=== PATIENT | male | born 1935 | race Caucasian/White ===

== ENCOUNTER 2023-05-26 20:03 | Inpatient (IN) | payer OTHER ==
[2023-05-26] MEDS ORDERED: D50W 25 GM/50 ML SYRINGE IV PRN (20:48)
[2023-05-26] MEDS ORDERED: GLUCAGON 1 MG/VIAL IM PRN (20:48)
[2023-05-26] MEDS ORDERED: D10W 125 ML IV PRN (20:51)
[2023-05-26] MEDS: APIXABAN 2.5 MG TABLET PO SCH (21:00)
[2023-05-26] MEDS: INSULIN -REGULAR HUMAN 50 UNIT/0.5 ML ML SQ SCH (21:00)
[2023-05-26 21:10] LABS: Absolute Lymphocytes (CBC) 1.1 K/uL (0.7-4.9); Lymphocytes % 13.1 % (15.3-44.8); MCV 96.1 fL (80-100); MPV 8.9 fL (7.6-11.3); RBC Red Blood Cell Count 3.64 M/uL (4.33-5.43)
--- NOTE | 2023-05-26 22:15 | RAD REPORT ---
EXAM DESCRIPTION: RAD - Chest Pa And Lat (2 Views) - 05/26/2023 10:09 pm CLINICAL HISTORY: CHF COMPARISON: No comparisons FINDINGS: Lines: None. Lungs: Left basilar airspace disease. Pleural: Small left pleural effusion . Cardiac: Mild cardiomegaly. Mediastinum: Within normal limits. Bones: No acute fractures. Sternotomy. Other: None IMPRESSION: Small left pleural effusion and probably underlying atelectasis but a consolidative proc ess could appear similar.
[2023-05-26] MEDS: FUROSEMIDE 20 MG/ 2ML VIAL IV SCH (22:30)
[2023-05-26 22:50] LABS: Albumin 3.1 g/dL (3.4-5.0); Bilirubin Total 0.5 mg/dL (0.2-1.0); Potassium 4.5 mEq/L (3.5-5.1); Protein, Total 7.3 g/dL (6.4-8.2)
[2023-05-26 22:56] LABS: Thyroid Stimulating Hormone 6.33 uIU/mL (0.358-3.740)
[2023-05-27] MEDS: PANTOPRAZOLE 40MG TABLET PO SCH (05:47)
[2023-05-27] MEDS: LEVOTHYROXINE SOD 0.05 MG TABLET PO SCH (05:47)
--- NOTE | 2023-05-27 06:29 | HP ---
Date of Admission: 05/26/2023 Chief Complaint: Shortness of breath. History Of Present Illness: This is an 87-year-old very pleasant male patient, who recently moved he re to town from [place], [place] and today was the first office visit appointment for him and after he was evaluated, he was admitted to the hospital. The patient reports that in last 1 month or so, сергей monreal has gained approximately 10 pounds, having significant bilateral leg edema, has shortness of breath with daily activities, which includes walking from room to room and also has some paroxysmal nocturn al dyspnea and orthopnea in the last 3 to 4 weeks. After he was evaluated, decision was made to admi t him to the hospital for further evaluation and management of this problem. Allergies: TO ATORVASTATIN, CAUSING MYALGIA. Review of Systems: Cardiovascular: As mentioned above. Respiratory: As mentioned above. Constitutional: As mentioned above. All other systems reviewed and negative. Medications: Amiodarone 200 mg daily, Eliquis 2.5 mg 2 times a day, aspirin 81 mg daily, tamsulosin 0.4 mg daily, 0.5 mg daily, ferrous sulfate 325 mg daily, furosemide 20 mg daily, glipizid e 10 mg 2 times a day, Januvia 25 mg daily, levothyroxine 25 mcg takes 1-1/2 tablet daily, metoprolol succinate 25 mg daily, losartan 25 mg daily, pantoprazole 40 mg daily, rosuvastatin 10 mg daily at b edtime, vitamin B12 1000 mcg daily. 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 Past Surgical History: Patient had a craniotomy for cerebral hemorrhage, tonsillectomy, coronary art jasmin stent placement in 1998 and 2004, coronary artery bypass surgery in 2002, cardioversion for atria l fibrillation in December 2021, right great toe surgery at age 10 years due to injury. Family History: Father , had diabetes and stroke. Mother , had diabetes. Sister had stroke . Social History: Prior history of smoking, quit long time ago. Use of alcohol negative. Physical Examination: Vital Signs: When he was seen at our office today, blood pressure was 94/54, temperature 97.7, pulse 68, respiratory rate 16, weight 235.4 pounds, height 75 inches. General: Awake, alert, oriented, not in distress. HEENT: Head atraumatic, normocephalic. Conjunctivae nonerythematous. Sclerae white. Mouth, no thr ush or edema noted. Ears/Nose, no mass, lesion, discharge noted. Neck: Supple. No JVD, lymph nodes, bruit, thyromegaly noted. Lungs: Bilateral good equal air entry with diminished air entry in the lower lung bay with presen ce of crackles in bilateral lower 1/3 lung bay. Not using any accessory muscles of respiration. Heart: Normal heart sounds, no murmur or gallop. Abdomen: Soft, bowel sounds normal. No guarding, rigidity, tenderness, mass, hepatosplenomegaly, dis tention, or bruit noted. Extremities: Bilateral leg edema, which is about grade [address] edema [address] the way to groin from h is feet. Skin: No rash, ulcer, cellulitis. Lymphatics: No lymph node enlargement in neck, supraclavicular, infraclavicular region. Neuro: No focal neurological deficit. Chest: Unremarkable. External Genitalia: Deferred. Rectal: Deferred. Laboratory Data: WBC , hemoglobin , platelets . Sodium , po tassium , chloride , bicarb , BUN , creatinine , gl ucose , magnesium , TSH , proBNP , hemoglobin A1c . Chest x-ray , EKG . Impression: 1.Congestive heart failure, acute exacerbation. 2.Diabetes mellitus with chronic kidney disease. 3.Chronic kidney disease, stage 3B. 4.Hypertension. 5.Hyperlipidemia. 6.Coronary artery disease. 7.Paroxysmal atrial fibrillation. 8.Chronic anticoagulation therapy. 9.Hypothyroidism. 10.Gastroesophageal reflux disease. 11.Benign prostatic hypertrophy. 12.Anemia due to chronic kidney disease. Plan: We will go ahead and admit the patient to hospital for further evaluation and management of th is problem. The patient is appropriate for inpatient and is expected to [facility]. We will consult tailor women's garment alteration for congestive heart failure problem and get echo with Doppler tomor row. For his atrial fibrillation, he is on chronic anticoagulation therapy with Eliquis, which will be continued. He is on metoprolol as well as losartan and we will hold these two medications right n ow and this will allow us to give appropriate amount of diuretic therapy with IV Lasix. We will marycruz tor intake, output, daily weight. Fall precaution was ordered and we will consult Physical Therapy. Diabetes will be managed with sliding scale insulin and for hypothyroidism, we will continue his lev othyroxine per order. We will continue his medications for benign prostatic hypertrophy. I have dis cussed with the patient in presence of his daughter regarding his advance directives and the patient clearly has stated that in the event of cardiopulmonary arrest, he does not want any heroic measures like CPR, defibrillation, or ventilator support and we will DNR order in the chart. I will see him t omorrow morning for followup. EARLINE/MODL Voice ID: [id number]
[2023-05-27] MEDS ORDERED: LEVOTHYROXINE SOD 0.025 MG TAB PO SCH (06:30)
[2023-05-27 06:48] VITALS: BMI 29.9
[2023-05-27] MEDS: INSULIN -REGULAR HUMAN 50 UNIT/0.5 ML ML SQ SCH ×4 (07:30→23:29)
[2023-05-27] MEDS: FUROSEMIDE 20 MG/ 2ML VIAL IV SCH ×2 (09:30→20:33)
[2023-05-27] MEDS: APIXABAN 2.5 MG TABLET PO SCH ×2 (09:30→20:33)
[2023-05-27] MEDS: TAMSULOSIN 0.4 MG SR CAP PO SCH (09:30)
[2023-05-27] MEDS: CYANOCOBALAMIN 1,000 MCG TAB PO SCH (09:31)
[2023-05-27] MEDS: ASPIRIN EC 81 MG TAB PO SCH (09:31)
[2023-05-27] MEDS: AMIODARONE HCL 200 MG TAB PO SCH (09:31)
[2023-05-27 20:00] VITALS: O2SAT 94
[2023-05-27] MEDS: ROSUVASTATIN 10 MG TAB PO SCH (20:33)
[2023-05-27] MEDS: DUTASTERIDE 0.5 MG GEL CAP PO SCH (20:33)
[2023-05-28] MEDS: PANTOPRAZOLE 40MG TABLET PO SCH (05:58)
[2023-05-28] MEDS: LEVOTHYROXINE SOD 0.05 MG TABLET PO SCH (05:58)
[2023-05-28] MEDS: INSULIN -REGULAR HUMAN 50 UNIT/0.5 ML ML SQ SCH ×4 (07:30→20:47)
--- NOTE | 2023-05-28 07:56 | PN ---
Date of Progress Note: 05/27/2023 Subjective: The patient was seen this morning for followup. No new complaints or problems reported by the patient. He was lying in bed, not in distress. Vital signs reviewed. Denies any chest pain, nausea, vomiting, or shortness of breath. Objective: HEENT Examination: Unremarkable. Lungs: Clear to auscultation except rales noted in lower lung bay, unchanged from yesterday. Not using any accessory muscles of respiration. Heart: Sounds normal. Abdomen: Soft, bowel sounds normal. No guarding, rigidity, tenderness, distention. Extremities: Leg edema in both lower extremities, unchanged from yesterday. Impression: 1.Congestive heart failure. 2.Chronic kidney disease stage IIIB to stage IV. 3.Hyperlipidemia. 4.Coronary artery disease. 5.Type 2 diabetes mellitus with chronic kidney disease. Plan: We will go ahead and continue current diuretic therapy, continue current diabetes management w ith sliding scale insulin. We will continue his anticoagulation therapy, which is Eliquis. Cardiolo gy consultation is pending and echocardiogram was ordered for today. We will follow up on the result s. Continue IV Lasix. Monitor intake, output, daily weight, and I will see him tomorrow for followu kevin EARLINE/MODL Voice ID: [id number] Report ID: [id number]
--- NOTE | 2023-05-28 08:33 | ECHO ---
HEIGHT: 6 ft 2 in WEIGHT: 230 lb 11.2 oz DATE OF STUDY: 05/27/[address]: Thiago Rice MD 2-DIMENSIONAL: YES M.MODE: YES DOPPLER: YES COLOR FLOW: YES TDS: PORTABLE: YES DEFINITY: BUBBLE STUDY: DIAGNOSIS: CONGESTIVE HEART FAILURE CARDIAC HISTORY: CATHERIZATION: YES SURGERY: CABG PROSTHETIC VALVE: PACEMAKER: MEASUREMENTS (cm) DIASTOLIC (NORMALS) SYSTOLIC (NORMALS) IVSd 1.0 (0.6-1.2) LA Diam (1.9-4.0) LVEF 50-55% LVIDd 3.0 (3.5-5.7) LVIDs 2.6 (2.0-3.5) %FS 15% LVPWd 1.1 (0.6-1.2) Ao Diam 2.7 (2.0-3.7) 2 DIMENSIONAL ASSESSMENT: RIGHT ATRIUM: NORMAL LEFT ATRIUM: NORMAL RIGHT VENTRICLE: NORMAL LEFT VENTRICLE: NORMAL TRICUSPID VALVE: MILD TRICUSPID REGURGITATION MITRAL VALVE: MILD MITRAL REGURGITATION PULMONIC VALVE: NORMAL AORTIC VALVE: NORMAL PERICARDIAL EFFUSION: NONE AORTIC ROOT: NORMAL LEFT VENTRICULAR WALL MOTION: APPEARS NORMAL DOPPLER/COLOR FLOW: SEE BELOW COMMENTS: 1. LIMITED WINDOWS 2. OVERALL LEFT VENTRICULAR EJECTION FRACTION APPEARS NORMAL 50-55% 3. NO TISSUE DOPPLER WAS DONE TO EVALUATE DIASTOLIC FUNCTION 4. MILD MITRAL REGURGITATION 5. MILD TRICUSPID REGURGITATION TECHNOLOGIST: RAVI WEEKS
[2023-05-28] MEDS: glipiZIDE 5 MG TAB PO SCH ×2 (08:52→16:41)
[2023-05-28] MEDS: TAMSULOSIN 0.4 MG SR CAP PO SCH (08:52)
[2023-05-28] MEDS: CYANOCOBALAMIN 1,000 MCG TAB PO SCH (08:52)
[2023-05-28] MEDS: FUROSEMIDE 20 MG/ 2ML VIAL IV SCH ×2 (08:53→20:40)
[2023-05-28] MEDS: AMIODARONE HCL 200 MG TAB PO SCH (08:53)
[2023-05-28] MEDS: APIXABAN 2.5 MG TABLET PO SCH ×2 (08:53→20:40)
[2023-05-28] MEDS: ASPIRIN EC 81 MG TAB PO SCH (08:53)
[2023-05-28 08:59] LABS: Magnesium 2.1 mg/dL (1.6-2.4); Potassium 4.2 mEq/L (3.5-5.1)
--- NOTE | 2023-05-28 18:39 | CON ---
Date of Consultation: 05/27/2023 Reason For Consultation: Heart failure. History Of Present Illness: An 87-year-old male, seen by Dr. Rice in his office as initial evaluatio n. He had significant shortness of breath, orthopnea and lower extremity edema, diagnosed with heart failure, admitted to the hospital. He denies having any chest pain. Generally, he is fatigued. No other complaints. Past Medical History: Hypertension, diabetes, chronic kidney disease, coronary artery disease, dysli pidemia, paroxysmal atrial fibrillation, diastolic heart failure, and anemia. Medications: Refer to reconciliation sheet for detailed list. Allergies: ATORVASTATIN. Family History: No premature coronary artery disease or cancer. Social History: He does not smoke or drink. Does not use any drugs. Review of Systems: All systems reviewed and they were negative except what mentioned in HPI. Physical Examination: Vital Signs: Reviewed. Head and Neck: Pupils are equal, reactive to light. Intact eye movements. No JVD. No cervical lym phadenopathy. Neck is supple. Thyroid is not enlarged. Lungs: Clear to auscultation bilaterally. No rhonchi, wheezing, or crackles. No accessory muscle u se. Heart: Regular rate and rhythm. No extra sounds. Abdomen: Soft, nontender. Bowel sounds positive. No organomegaly. No masses or hernia. No rigidi ty or rebound. Extremities: No edema, clubbing, or cyanosis. Intact pulses. Skin: No rash. Neurologic: Alert, awake, oriented x3. No acute focal deficits appreciated. Investigations: BUN 44, creatinine 2.33. NT-proBNP is 1072. Assessment And Recommendations: 1.Acute on chronic diastolic heart failure exacerbation. Obtain an echo. Agree with IV diuretics, Lasix 20 mg IV q.12 hours. The patient is diuresing very well. Monitor BUN, creatinine, electrolyte s. 2.Atrial fibrillation, seems to be controlled. Continue amiodarone and Eliquis. 3.Dyslipidemia, on Crestor. Continue current management. SR/MODL Voice ID: [id number] Report ID: [id number]
--- NOTE | 2023-05-28 19:06 | PN ---
Date of Progress Note: 05/28/2023 Subjective: Seen by bedside. Significant improvement, edema is improving. No significant shortness of breath today. Review of Systems: Has shortness of breath on exertion with orthopnea and lower extremity edema. No nausea, vomiting, d iarrhea. All other systems reviewed and they were negative. Physical Examination: Vital Signs: Reviewed. Head and Neck: Pupils are equal, reactive to light. Intact eye movements. Positive JVD. No cervic al lymphadenopathy. Neck is supple. Thyroid is not enlarged. Lungs: Clear to auscultation bilaterally. No rhonchi, wheezing, or crackles. No accessory muscle u se. Heart: Regular rate and rhythm. No extra sounds. Abdomen: Soft, nontender. Bowel sounds positive. No organomegaly. No masses or hernia. No rigidi ty or rebound. Extremities: 1 to 2+ edema bilaterally. No clubbing or cyanosis. Intact pulses. Skin: No rash. Neurologic: Alert, awake, oriented x3. No acute focal deficits appreciated. Investigations: Creatinine today is 2.05, BUN is 39. Assessment And Recommendations: 1.Acute on chronic diastolic heart failure. On echo, he has normal ejection fraction. Continue gen tle diuresis. He is responding very well. Monitor BUN, creatinine, and electrolytes. 2.Acute on chronic renal failure. The patient is known to have history of chronic kidney disease. His creatinine improved with diuresis. It is likely due to the elevated central venous pressure and should improve further with diuresis. Monitor creatinine on a daily basis. 3.Dyslipidemia. Continue statin. 4.Hypertension. Blood pressure is controlled. 5.Atrial fibrillation, controlled. Rate is excellent and continue Eliquis. SR/MODL Voice ID: [id number] Report ID: [id number]
--- NOTE | 2023-05-28 19:19 | EKG ---
Test Date: 2023-05-26 Test Time: 23:24:30 Area Forester: BHASKAR MEASUREMENT RESULTS: Intervals: Rate: 60 RI: 284 QRSD: 124 QT: 496 QTc: 496 Norphlet: P: 56 RI: 284 QRS: 98 T: -80 INTERPRETIVE STATEMENTS: Sinus rhythm with 1st degree AV block Rightward axis Nonspecific intraventricular conduction delay T wave abnormality, consider inferolateral ischemia Abnormal ECG No previous ECG available for comparison Electronically Signed On 05-28-23 19:17:52 CDT by Preet Emery
[2023-05-28] MEDS: DUTASTERIDE 0.5 MG GEL CAP PO SCH (20:39)
[2023-05-28] MEDS: ROSUVASTATIN 10 MG TAB PO SCH (20:40)
[2023-05-29 04:49] LABS: Potassium 4.4 mEq/L (3.5-5.1)
[2023-05-29] MEDS: PANTOPRAZOLE 40MG TABLET PO SCH (06:27)
[2023-05-29] MEDS: LEVOTHYROXINE SOD 0.05 MG TABLET PO SCH (06:27)
[2023-05-29] MEDS: INSULIN -REGULAR HUMAN 50 UNIT/0.5 ML ML SQ SCH ×4 (07:30→21:46)
[2023-05-29] MEDS: ASPIRIN EC 81 MG TAB PO SCH (09:00)
--- NOTE | 2023-05-29 09:12 | PN ---
Date of Progress Note: 05/28/2023 Subjective: Patient was seen this morning for followup. No new complaints or problems reported by t he patient. Overall, he feels better and looks better since the time of admission. Daughter was pre sent with him at bedside. Objective: HEENT: Unremarkable. Lungs: Bilateral good equal air entry. Presence of rales noted in lung bases. Overall, that is bett er compared to before. Heart: Heart sounds normal. Abdomen: Soft. Bowel sounds normal. No guarding, rigidity, tenderness, or distention. Extremities: Bilateral leg edema, still grade [address] from thigh to bilateral feet . Overall, that is better than before. Skin: Skin over both lower extremities continues to have very faint pink discoloration, unchanged fr om before. Laboratory Data: Reviewed. Echocardiogram shows normal ejection fraction. Impression: 1.Chronic diastolic heart failure, with acute exacerbation. 2.Coronary artery disease. 3.Hyperlipidemia. Plan: We will go ahead and continue current diuretic therapy. Monitor intake, output, daily weight, electrolytes, renal function. Continue other current management and I will see him tomorrow for followup, possible discharge to go home in next 1 or 2 days depending on his condition. EARLINE/MODL Voice ID: [id number] Report ID: [id number]
[2023-05-29] MEDS: AMIODARONE HCL 200 MG TAB PO SCH (09:28)
[2023-05-29] MEDS: TAMSULOSIN 0.4 MG SR CAP PO SCH (09:28)
[2023-05-29] MEDS: glipiZIDE 5 MG TAB PO SCH ×2 (09:28→16:25)
[2023-05-29] MEDS: APIXABAN 2.5 MG TABLET PO SCH ×2 (09:28→21:45)
[2023-05-29] MEDS: CYANOCOBALAMIN 1,000 MCG TAB PO SCH (09:28)
[2023-05-29] MEDS: FUROSEMIDE 20 MG/ 2ML VIAL IV SCH ×2 (09:29→21:45)
[2023-05-29] MEDS: DUTASTERIDE 0.5 MG GEL CAP PO SCH (21:44)
[2023-05-29] MEDS: ROSUVASTATIN 10 MG TAB PO SCH (21:44)
--- NOTE | 2023-05-30 00:09 | PN ---
Date of Progress Note: 05/29/2023 Subjective: Seen by bedside. Continues to do better and his breathing status is improving. Lower e xtremity edema still there, but with movement. Review of Systems: No chest pain, shortness of breath. No nausea, vomiting, diarrhea. No dysuria, polyuria, or urinary urgency. All other systems reviewed are negative. Physical Examination: Vital Signs: Reviewed. Head and Neck: Pupils are equal, reactive to light. Intact eye movements. No JVD. No cervical lym phadenopathy. Neck is supple. Thyroid is not enlarged. Lungs: Clear to auscultation bilaterally. No rhonchi, wheezing, or crackles. No accessory muscle u se. Heart: Irregular. No extra sounds. Abdomen: Soft, nontender. Bowel sounds positive. No organomegaly. No masses or hernia. No rigidi ty or rebound. Extremities: There is no clubbing, cyanosis. Intact pulses and edema is present. Neurologic: Alert, awake, oriented x3. No acute focal deficits appreciated. Lymph nodes: No cervical or axillary lymphadenopathy. Investigations: Labs were reviewed. Assessment/recommendation: 1.Acute on chronic diastolic heart failure exacerbation, on diuretics, and he probably will benefit from 1 more day of IV diuresis and then switch to oral. 2.Atrial fibrillation. Controlled condition. Continue amiodarone and Eliquis. 3.Dyslipidemia. Continue Crestor. SR/MODL Voice ID: [id number] Report ID: [id number]
[2023-05-30] MEDS: LEVOTHYROXINE SOD 0.05 MG TABLET PO SCH (06:34)
[2023-05-30] MEDS: PANTOPRAZOLE 40MG TABLET PO SCH (06:34)
[2023-05-30] MEDS: INSULIN -REGULAR HUMAN 50 UNIT/0.5 ML ML SQ SCH ×2 (07:30→11:30)
[2023-05-30] MEDS: glipiZIDE 5 MG TAB PO SCH (09:01)
[2023-05-30] MEDS: ASPIRIN EC 81 MG TAB PO SCH (09:01)
[2023-05-30] MEDS: AMIODARONE HCL 200 MG TAB PO SCH (09:01)
[2023-05-30] MEDS: CYANOCOBALAMIN 1,000 MCG TAB PO SCH (09:01)
[2023-05-30] MEDS: TAMSULOSIN 0.4 MG SR CAP PO SCH (09:01)
[2023-05-30] MEDS: APIXABAN 2.5 MG TABLET PO SCH (09:02)
[2023-05-30] MEDS: FUROSEMIDE 20 MG/ 2ML VIAL IV SCH (09:02)
[2023-05-30 09:04] VITALS: BP 124/64
[2023-05-30 09:06] VITALS: TEMP 97.6
[2023-05-30] MEDS ORDERED: METOLAZONE 2.5 MG TABLET PO ONE (11:00)
--- NOTE | 2023-05-30 16:06 | PN ---
Date of Progress Note: 05/30/2023 Subjective: Seen by bedside, breathing much better. No shortness of breath. Still has some lower e xtremity edema, but no difficulty breathing or orthopnea. Review of Systems: No chest pain, shortness of breath, orthopnea, cough. No nausea, vomiting, diarrhea. No abdominal p ain. All other systems reviewed are negative. Physical Examination: Vital Signs: Reviewed. Head and Neck: Pupils are equal, reactive to light. Intact eye movements. No JVD. No cervical lym phadenopathy. Neck is supple. Thyroid is not enlarged. Lungs: Clear to auscultation bilaterally. No rhonchi, wheezing, or crackles. No accessory muscle u se. Heart: Regular rate and rhythm. No extra sounds. Abdomen: Soft, nontender. Bowel sounds positive. No organomegaly. No masses or hernia. No rigidi ty or rebound. Extremities: No edema, clubbing, cyanosis. Intact pulses. Skin: No rash. Neurologic: Alert, awake, oriented x3. No acute focal deficits appreciated. Investigations: Labs reviewed. Assessment/recommendations: 1.Acute on chronic diastolic heart failure exacerbation. Appears to be doing much better. Still pina s some lower extremity edema, but BUN and creatinine started to go up. I will switch him to oral Las ix 40 mg daily and follow up as an outpatient. From my standpoint, he can be released. 2.Atrial fibrillation, controlled. Continue amiodarone and Eliquis. 3.Dyslipidemia. Continue statin. Cardiology will sign off and the patient can be seen on an outpat ient basis. SR/MODL Voice ID: [id number] Report ID: [id number]
--- NOTE | 2023-05-31 16:39 | PN ---
Date of Progress Note: 05/29/2023 Subjective: The patient was seen for followup in the morning. He was lying in bed, not in any distr ess. No paroxysmal nocturnal dyspnea or orthopnea and overall his leg swelling is better. Daily jag ght and vital signs records reviewed. Objective: HEENT: Unremarkable. Lungs: Bilateral good equal air entry. Clear to auscultation. No wheezing. No rales. Heart: Sounds normal. Abdomen: Soft. Bowel sounds normal. No guarding, rigidity, tenderness, distention. Extremities: Bilateral grade 2 pedal edema, overall better than before. Laboratory Data: Labs reviewed. Impression: 1.Chronic diastolic heart failure, with acute exacerbation. 2.Paroxysmal atrial fibrillation. 3.Hypertension. 4.Hyperlipidemia. 5.Chronic kidney disease stage 3B. 6.Chronic anticoagulation therapy. Plan: We will go ahead and continue current diuretic therapy. Continue current anticoagulation ther apy. Monitor intake, output, daily weight and we will continue IV Lasix as per current order. I kel l see him tomorrow for followup and possible discharge to go home tomorrow. Details were discussed w ith the patient. EARLINE/MODL Voice ID: [id number] Report ID: [id number]
--- NOTE | 2023-06-01 18:51 | DS ---
Date of Discharge: 05/30/2023 Disposition: Discharged to go home. Physical Examination: HEENT: Unremarkable. Lungs: Clear to auscultation. Heart: Sounds normal. Abdomen: Soft. Bowel sounds normal. No guarding, rigidity, tenderness, distention. Extremity: Bilateral grade 1 pedal edema. Discharge Medications And Instructions: Continue all prior home medication except following changes; 1.Stop Januvia, metoprolol, losartan, and levothyroxine 25 mcg. 2.Change glipizide 10 mg, take half a tablet 2 times a day. 3.Change furosemide 40 mg, take 1 tablet by mouth 2 times a day. 4.Start Farxiga 5 mg, take 1 tablet by mouth daily with breakfast. 5.Start levothyroxine 50 mcg, take 1 tablet by mouth daily. 6.Follow up at my office next week on Friday or . 7.Follow up with Dr. Emery, door trimmer in 3-4 weeks. Laboratory Data: Upon admission; white count 8.3, hemoglobin 11.3, platelets 162. Last chemistries; sodium 139, potassium 4.4, chloride 103, bicarb 34, BUN 36, creatinine 2.11, estimated GFR 30. On 0 05/28; estimated GFR was 31 with creatinine 2.05. Upon admission; creatinine 2.33, estimated GFR 26. Liver function tests unremarkable, proBNP 1072 upon admission, and TSH 6.3 upon admission. Hemoglob in A1c was 7.6 upon admission. Echocardiogram had shown normal ejection fraction of 50% to 55%. Hospital Course: An 87-year-old very pleasant male patient, who was admitted to the hospital with ac mena exacerbation of chronic diastolic heart failure. Please see dictated H and P for more informatio n. After the patient was evaluated at office for initial office visit, decision was made to admit sabine barcenas to the hospital and once he was admitted to the hospital, we started him on IV Lasix. He responded very well to Lasix 20 mg IV q.12 hours and we monitored intake, output, daily weight, electrolytes, renal function. We also obtained Cardiology consultation from Dr. Emery. The patient overall start ed feeling a lot better with adequate treatment for congestive heart failure and we were able to disc harge him to go home in stable condition today. He has lost about 10-12 pounds weight during this ho spitalization. Today 2.5 mg of metolazone 1 time dose was given to him. We will follow up on outpat ient basis with him. EARLINE/MODL Voice ID: [id number] Report ID: [id number]
== END 2023-05-30 13:49 | disposition home or self-care (01) | DRG 291 ==
LOC: 2ND 20:03
PROVIDERS: ADMIT Internal Medicine; ATTEND Internal Medicine
DX: I13.0 Hypertensive heart and chronic kidney disease with heart failure and stage 1 through stage 4 chronic kidney disease, or unspecified chronic kidney disease (principal); I50.33 Acute on chronic diastolic (congestive) heart failure; N17.9 Acute kidney failure, unspecified; N18.4 Chronic kidney disease, stage 4 (severe); E11.22 Type 2 diabetes mellitus with diabetic chronic kidney disease; D63.1 Anemia in chronic kidney disease; E78.5 Hyperlipidemia, unspecified; I48.0 Paroxysmal atrial fibrillation; N40.0 Benign prostatic hyperplasia without lower urinary tract symptoms; M19.09 Primary osteoarthritis, other specified site; K21.9 Gastro-esophageal reflux disease without esophagitis; E03.9 Hypothyroidism, unspecified; I25.10 Atherosclerotic heart disease of native coronary artery without angina pectoris; Z95.5 Presence of coronary angioplasty implant and graft; Z95.1 Presence of aortocoronary bypass graft; Z88.8 Allergy status to other drugs, medicaments and biological substances; Z79.01 Long term (current) use of anticoagulants; Z79.82 Long term (current) use of aspirin; Z79.84 Long term (current) use of oral hypoglycemic drugs; Z79.899 Other long term (current) drug therapy; Z79.890 Hormone replacement therapy; Z87.891 Personal history of nicotine dependence
CPT/HCPCS: 36415; 71046; 80048; 80053; 82947; 83036; 83735; 83880; 84439; 84443; 85025; 93005; 93306; 97110; 97116; J1815; J1940

== ENCOUNTER 2024-05-30 07:14 | Inpatient (IN) | payer OTHER ==
[2024-05-30 08:02] LABS: Absolute Basophils 0.1 K/uL (0-0.5); Absolute Eosinophils 0.1 K/uL (0-0.5); Absolute Lymphocytes (CBC) 1.1 K/uL (0.7-4.9); Absolute Monocytes 0.7 K/uL (0.1-1.3); Absolute Neutrophil 9.1 K/uL (1.8-8.0); Basophils % 0.6 % (0-1.3); Eosinophils % 0.7 % (0-4.4); Hematocrit 41.1 % (39.6-49.0); Hemoglobin 13.4 g/dL (13.6-17.9); Lymphocytes % 10.2 % (15.3-44.8); MCH 31.2 pg (27.0-35.0); MCHC 32.7 g/dL (32.0-36.0); MCV 95.6 fL (80-100); MPV 8.7 fL (7.6-11.3); Monocytes % 6.4 % (3.3-12.3); Neutrophils % 82.1 % (41.7-73.7); Platelets 185 thou/uL (152-406); Red Cell Distribution Width 13.4 % (12.1-15.2)
[2024-05-30 08:12] LABS: Anion Gap 5.6 mEq/L (5.0-15.0); Potassium 3.6 mEq/L (3.5-5.1)
--- NOTE | 2024-05-30 08:28 | RAD REPORT ---
EXAM DESCRIPTION: RAD - Pelvis - 05/30/2024 8:11 am CLINICAL HISTORY: fall COMPARISON: No comparisons TECHNIQUE: Single AP view of the pelvis. FINDINGS: The visualized pelvic ring is intact. No suspicious osseous lesions. No significant degene rative changes or erosions of the hip joints. Other pelvic joints are unremarkable. Visualized aspect s of the abdomen and soft tissues are unremarkable. IMPRESSION: No acute osseous abnormality of the bony pelvis.
--- NOTE | 2024-05-30 08:42 | RAD REPORT ---
EXAM DESCRIPTION: RAD - Knee Right 3 View - 05/30/2024 8:11 am CLINICAL HISTORY: fall COMPARISON: No comparisons TECHNIQUE: Right knee, 3 views. FINDINGS: Comminuted, mildly displaced, fracture involving the proximal tibial metadiaphysis. Mildly displaced fractures of the proximal fibular diaphysis as well. Moderate degenerative changes. No Dis location or periosteal reaction.Moderate joint effusion. Anterior soft tissue swelling at and above t he level of the knee, as well as the anterior proximal lower leg. IMPRESSION: Proximal tibia and fibula fractures as above. Anterior swelling and moderate joint effus ion.
--- NOTE | 2024-05-30 08:45 | RAD REPORT ---
EXAM DESCRIPTION: [facility] Single View05/30/2024 8:11 am CLINICAL HISTORY: fall COMPARISON: Chest Pa And Lat (2 Views) dated 05/26/2023 TECHNIQUE: Portable AP view of the chest. FINDINGS: Stable left basilar airspace opacification with probable pleural thickening. No pneumotho rax or effusion. The cardiomediastinal contours are unchanged, with sequelae of median sternotomy aga in seen. . IMPRESSION: Stable left basilar airspace opacification, may reflect unresolved pneumonia or atelecta sis.
--- NOTE | 2024-05-30 08:59 | EDPHYS ---
Physician Documentation [facility] Name: Krishna Spencer Age: 88 yrs Sex: Male : 1935 Arrival Date: 05/30/2024 Time: 07:14 Bed 6 Private MD: ED Physician Zhou Lamar HPI: 05/30 07:20 This 88 yrs old Male presents to ER via Unassigned with complaints of Fall ec2 Injury. 07:20 Patient arrives today for evaluation after ground-level fall. Patient reports that he ec2 was walking, generally felt weak and fell onto the ground. Complaining of right knee pain. Patient reports no loss of consciousness, is on blood thinners. Patient reports no chest pain or difficulty breathing, no abdominal pain, no nausea or vomiting. EMS reports that they noted him to be borderline hypotensive and initiated crystalloid. . Historical: - Allergies: 07:23 Lipitor; ko1 - Home Meds: 07:31 Vitamin B-12 1,000 mcg Oral tablet 1 tab daily [Active]; Protonix 40 mg Oral tablet, ko1 delayed release (enteric coated) 1 tab once [Active]; Crestor oral 10mg 1 tab nightly [Active]; ferrous sulfate 325 mg (65 mg iron) Oral tablet 1 tab nightly [Active]; amiodarone 200 mg Oral tablet 1 tab daily for prevention of recurrent atrial fibrillation [Active]; Eliquis 2.5 mg oral tablet 1 tab 2 times per day [Active]; Lasix 40 mg Oral tablet 1 tab daily [Active]; dutasteride 0.5 mg oral capsule 1 cap nightly [Active]; levothyroxine 50 mcg tablet 1 tab daily for hypothyroidism [Active]; Farxiga 10 mg oral tablet 1 tab daily [Active]; midodrine 5 mg oral tablet 1 tab 5am, 10am, 3pm for symptomatic orthostatic hypotension [Active]; Tresiba FlexTouch U-100 100 unit/mL (3 mL) subcutaneous Insulin Pen 34 units daily [Active]; Ozempic 1 mg/dose (4 mg/3 mL) subcutaneous Pen Injector 1 mg every week for type 2 diabetes mellitus [Active]; - Immunization history:: Adult Immunizations up to date. - Infectious Disease History:: Denies. - Social history:: Smoking status: Patient denies any tobacco usage or history of. ROS: 07:20 Constitutional: as per hpi ec2 Exam: 07:20 Constitutional: GEN: No acute distress HEENT: -Head: no deformities -Eyes: EOMI CV: ec2 regular rate LUNGS: no respiratory distress ABD: non-tender SKIN: no wounds appreciated MSK: No C/T/L spine deformities RUE w/o bony deformity LUE w/o bony deformity RLE with TTP to the right tibia, proximal. Intact distal neurovascular status. LLE w/o bony deformity NEURO: moves all extremities equally, GCS 15 (E4, V5, M6) Vital Signs: 07:21 BP 107 / 66; Pulse 68; Resp 16; Temp 97; Pulse Ox 99% ; Weight 90.72 kg; Height 6 ft. 2 ko1 in. ; Pain 5/10; 08:52 BP 103 / 69; Pulse 73; Resp 16; Pulse Ox 99% on R/A; iw 09:39 BP 103 / 60; Pulse 72; Resp 16; Pulse Ox 99% on 2 lpm NC; iw 07:21 Body Mass Index 25.68 (90.72 kg, 187.96 cm) ko1 07:21 Pain Scale: Adult ko1 MDM: 07:18 Patient medically screened. ec2 07:20 Data reviewed: vital signs. ED course: Patient arrives today for evaluation after ec2 ground-level fall. Examination remarkable for well-appearing nontoxic individual is otherwise in no acute distress with TTP to the right knee. Will obtain lab work, radiographs as well as CT scan of the head. Differential includes process such as dehydration, arrhythmia, electrolyte disturbances, bony fracture.. 07:31 ED course: EKG independently reviewed and interpreted by me, shows normal sinus rhythm, ec2 rate 69, no acute ST segment elevations, intervals are nonconcerning, does show first-degree AV block. . 07:47 ED course: Daughter now at bedside, reports that he has a hx of hypotension and is on ec2 midodrine 5mg tid. 08:42 ED course: All shows whatMetabolic profile dysfunction with a creatinine of 1.67 and ec2 GFR of 39. CBC is pertinent for minimal anemia. Pelvis x-ray shows no acute traumatic process. CK within normal ranges. . 08:48 ED course: Knee x-ray independently reviewed and interpreted by me, shows proximal ec2 fibula and tibia fractures. Will place patient in a long-leg splint.. 08:56 ED course: Patient is a significant fall risk given his injury and splint, will admit ec2 for PT/OT. discussed w/ hospitalist, pending admission . 05/30 07:20 Order name: Basic Metabolic Panel; Complete Time: 08:41 ec2 05/30 07:20 Order name: CBC with Diff; Complete Time: 08:41 ec2 05/30 07:20 Order name: CK; Complete Time: 08:41 ec2 05/30 09:06 Order name: Urinalysis w/ reflexes EDMO 05/30 07:20 Order name: XRAY Chest (1 view); Complete Time: 08:49 ec2 05/30 07:20 Order name: Knee Right 3 View XRAY; Complete Time: 08:49 ec2 05/30 07:20 Order name: Pelvis XRAY; Complete Time: 08:41 ec2 05/30 07:20 Order name: CT Head Brain wo Cont; Complete Time: 09:40 ec2 05/30 09:06 Order name: CONS Physician Consult [facility] 05/30 09:06 Order name: Physical Therapy Consult [facility] 05/30 07:20 Order name: Cardiac monitoring; Complete Time: 07:31 ec2 05/30 07:20 Order name: EKG - Nurse/Tech; Complete Time: 07:31 ec2 05/30 07:20 Order name: IV Saline Lock; Complete Time: 07:31 ec2 05/30 07:20 Order name: Labs collected and sent; Complete Time: 07:31 ec2 05/30 07:20 Order name: O2 Per Protocol; Complete Time: 07:31 ec2 05/30 07:20 Order name: O2 Sat Monitoring; Complete Time: 07:31 ec2 05/30 07:40 Order name: Labs - recollect needed: recollect all the blood/ hemolyzed per Shira; eb Complete Time: 07:47 05/30 08:49 Order name: Posterior Leg Splint; Complete Time: 09:22 ec2 Administered Medications: 07:31 Drug: NS 0.9% IV 1000 ml IV at 1 bolus Per protocol; 1000 mL bolus Route: IV; Rate: 1 ko1 bolus; Site: right antecubital; 09:40 Follow up: IV Status: Completed infusion iw 09:12 Drug: fentaNYL (PF) IVP 25 mcg IVP once Route: IVP; Site: right antecubital; iw Disposition Summary: 05/30/24 08:58 Hospitalization Ordered Notes: Hospitalization Status: Inpatient Admission ec2 Provider: Fernanda Rice ec2 Location: Telemetry/MedSurg (Inpatient) ec2 Condition: Stable ec2 Problem: new ec2 Symptoms: have improved ec2 Bed/Room Type: Standard ec2 Room Assignment: 201(05/30/24 09:10) eb Diagnosis - Weakness ec2 - Non-displaced Tibial Plateau Fracture ec2 Forms: - Medication Reconciliation Form ec2 - SBAR form ec2 - Leadership Thank You Letter ec2 Signatures: Dispatcher [employer] EDMS Albina Vivas RN RN iw Botello, Elizabeth eb Oliver, Kathy, RN RN ko1 Zhou Lamar MD MD ec2 Corrections: (The following items were deleted from the chart) 07:20 07:20 Chest Single View+RAD.RAD.BRZ ordered. EDMS EDMS 07:20 07:20 Knee Right 3 View+RAD.RAD.BRZ ordered. EDMS EDMS 07:20 07:20 Pelvis+RAD.RAD.BRZ ordered. EDMS EDMS 07:20 07:20 Head Brain Wo Cont+CT.RAD.BRZ ordered. EDMS EDMS 09:10 08:58 ec2 eb
--- NOTE | 2024-05-30 08:59 | ER ---
Nurse's Notes [facility] Name: Krishna Spencer Age: 88 yrs Sex: Male : 1935 Arrival Date: 05/30/2024 Time: 07:14 Bed 6 Private MD: Diagnosis: Weakness;Non-displaced Tibial Plateau Fracture Presentation: 05/30 07:21 Chief complaint: EMS states: patient fell this morning around 4am, did not hit head or ko1 loose consciousness. Complains of pain to right knee. He is on Eliquis. Coronavirus screen: At this time, the client does not indicate any symptoms associated with coronavirus-19. Ebola Screen: No symptoms or risks identified at this time. Initial Sepsis Screen: Does the patient meet any 2 criteria? No. Patient's initial sepsis screen is negative. Does the patient have a suspected source of infection? No. Patient's initial sepsis screen is negative. Risk Assessment: Do you want to hurt yourself or someone else? Patient reports no desire to harm self or others. Onset of symptoms was May 30, 2024. Care prior to arrival: IV initiated. 20 GA, in the right antecubital area. Mechanism of Injury: Fall from standing position. Transition of care: patient was received from another setting of care (long-term care facility), [facility]. 07:21 Method Of Arrival: EMS: [facility] ko1 07:21 Acuity: MARIA ESTHER 3 ko1 07:30 Care prior to arrival: Medication(s) given: Normal saline infusion. ko1 Triage Assessment: 07:23 General: Appears in no apparent distress. comfortable, Behavior is calm, cooperative, ko1 appropriate for age. Pain: Complains of pain in right knee. EENT: No deficits noted. Neuro: No deficits noted. Cardiovascular: No deficits noted. Respiratory: No deficits noted. GI: No deficits noted. : No deficits noted. Derm: No deficits noted. Musculoskeletal: Reports pain in right knee. Injury Description: Abrasion sustained to right knee. Historical: - Allergies: 07:23 Lipitor; ko1 - Home Meds: 07:31 Vitamin B-12 1,000 mcg Oral tablet 1 tab daily [Active]; Protonix 40 mg Oral tablet, ko1 delayed release (enteric coated) 1 tab once [Active]; Crestor oral 10mg 1 tab nightly [Active]; ferrous sulfate 325 mg (65 mg iron) Oral tablet 1 tab nightly [Active]; amiodarone 200 mg Oral tablet 1 tab daily for prevention of recurrent atrial fibrillation [Active]; Eliquis 2.5 mg oral tablet 1 tab 2 times per day [Active]; Lasix 40 mg Oral tablet 1 tab daily [Active]; dutasteride 0.5 mg oral capsule 1 cap nightly [Active]; levothyroxine 50 mcg tablet 1 tab daily for hypothyroidism [Active]; Farxiga 10 mg oral tablet 1 tab daily [Active]; midodrine 5 mg oral tablet 1 tab 5am, 10am, 3pm for symptomatic orthostatic hypotension [Active]; Tresiba FlexTouch U-100 100 unit/mL (3 mL) subcutaneous Insulin Pen 34 units daily [Active]; Ozempic 1 mg/dose (4 mg/3 mL) subcutaneous Pen Injector 1 mg every week for type 2 diabetes mellitus [Active]; - Immunization history:: Adult Immunizations up to date. - Infectious Disease History:: Denies. - Social history:: Smoking status: Patient denies any tobacco usage or history of. Screenin:28 [facility] ED Fall Risk Assessment (Adult) History of falling in the last 3 months, ko1 including since admission Yes- single mechanical fall (1 pt) Confusion or Disorientation No (0 pts) Intoxicated or Sedated No (0 pts) Impaired Gait Yes (1 pt) Mobility Assist Device Used Yes (1 pt) Altered Elimination No (0 pt) Score/Fall Risk Level 0 - 2 = Low Risk Oriented to surroundings, Maintained a safe environment, Educated pt \T\ family on fall prevention, incl call for assistance when getting out of bed, Assessed \T\ reinforced patient's understanding of fall precautions, Provided non-skid footwear, Hourly rounding (assess needs \T\ fall precautionary measures) done. Abuse screen: Denies threats or abuse. Denies injuries from another. Nutritional screening: No deficits noted. Tuberculosis screening: No symptoms or risk factors identified. Assessment: 07:28 Reassessment: see triage note. ko1 08:52 Reassessment: Patient appears in no apparent distress at this time. Patient and/or iw family updated on plan of care and expected duration. Pain level reassessed. Dr. Lamar at bedside to update pt and family on POC. Vital Signs: 07:21 BP 107 / 66; Pulse 68; Resp 16; Temp 97; Pulse Ox 99% ; Weight 90.72 kg; Height 6 ft. 2 ko1 in. ; Pain 5/10; 08:52 BP 103 / 69; Pulse 73; Resp 16; Pulse Ox 99% on R/A; iw 09:39 BP 103 / 60; Pulse 72; Resp 16; Pulse Ox 99% on 2 lpm NC; iw 07:21 Body Mass Index 25.68 (90.72 kg, 187.96 cm) ko1 07:21 Pain Scale: Adult ko1 ED Course: 07:17 Patient arrived in ED. eb 07:18 Zhou Lamar MD is Attending Physician. ec2 07:19 Kelsy Hernández, RN is Primary Nurse. ko1 07:23 Triage completed. ko1 07:23 Arm band placed on right wrist. Patient placed in an exam room, on a stretcher, on ko1 cardiac exercise specialist, on pulse oximetry, Patient notified of wait time. 07:28 Patient has correct armband on for positive identification. Allergy band placed. Fall ko1 risk band placed. Bed in low position. Call light in reach. Side rails up X2. Provided Education on: call light, labs, tests. Client placed on continuous cardiac and pulse oximetry monitoring. NIBP monitoring applied. child monitor on. Door closed. Noise minimized. Lights dimmed. Warm blanket given. Pillow given. 07:28 Initial lab(s) drawn, by ED staff, sent to lab. EKG done, by ED staff, reviewed by ko1 Zhou Lamar MD. Maintain EMS IV. Dressing intact. Good blood return noted. Site clean \T\ dry. Gauge \T\ site: 20g right AC. Flushed right antecubital with 5 ml normal saline. 07:31 CK Sent. ko1 07:31 Basic Metabolic Panel Sent. ko1 07:31 CBC with Diff Sent. ko1 07:47 Lab(s) recollected, by me, sent to lab. iw 07:54 CT Head Brain wo Cont In Process Unspecified. EDMS 08:12 XRAY Chest (1 view) In Process Unspecified. EDMS 08:12 Knee Right 3 View XRAY In Process Unspecified. EDMS 08:12 Pelvis XRAY In Process Unspecified. EDMS 08:57 Fernanda Rice MD is Hospitalizing Provider. ec2 09:20 No provider procedures requiring assistance completed. Patient admitted, IV remains in ko1 place. 09:22 Orthoglass splint: Posterior long leg splint applied on right leg. em1 Administered Medications: 07:31 Drug: NS 0.9% IV 1000 ml IV at 1 bolus Per protocol; 1000 mL bolus Route: IV; Rate: 1 ko1 bolus; Site: right antecubital; 09:40 Follow up: IV Status: Completed infusion iw 09:12 Drug: fentaNYL (PF) IVP 25 mcg IVP once Route: IVP; Site: right antecubital; iw Medication: 09:20 VIS not applicable for this client. ko1 Outcome: 08:58 Decision to Hospitalize by Provider. ec2 09:20 Admitted to ER Hold. Please see [facility] for further documentation. ko1 09:20 Condition: stable 09:20 Instructed on the need for admit, 09:50 Patient left the ED. eb Signatures: Dispatcher [employer] Albina Moffett RN RN iw Kirit Vargas em1 Jackelyn Huffman Kathy, RN RN ko1 Zhou Laamr MD MD ec2 Corrections: (The following items were deleted from the chart) 07:27 07:21 Chief complaint: EMS states: patient fell this morning around 4am, did not hit ko1 head or loose consciousness. Complains of pain to right knee. ko1 07:30 07:21 Coronavirus screen: At this time, the client does not indicate any symptoms ko1 associated with coronavirus-19. ko1 08:53 08:52 Pulse 73bpm; Resp 16bpm; Pulse Ox 99% RA; iw iw
[2024-05-30] MEDS ORDERED: ACETAMINOPHEN 325 MG TABLET PO PRN (09:01)
[2024-05-30] MEDS ORDERED: ONDANSETRON 4 MG/2 ML VIAL IV PRN ×2 (09:01→15:57)
[2024-05-30] MEDS ORDERED: FENTANYL CITR 100 MCG/2 ML ONE (09:05)
--- NOTE | 2024-05-30 09:28 | RAD REPORT ---
EXAM DESCRIPTION: CT - Head Brain Wo Cont - 05/30/2024 7:53 am CLINICAL HISTORY: head injury, fall, blood thinners COMPARISON: No comparisons TECHNIQUE: Noncontrast head CT images were obtained without IV contrast. Multiplanar reformats were generated and reviewed. All CT scans are performed using dose optimization technique as appropriate and may include automated exposure control or mA/KV adjustment according to patient size. FINDINGS: No intracranial hemorrhage, mass, or edema. Midline structures are unremarkable. Sequelae of prior right frontoparietal craniotomy. Mild diffuse parenchymal volume loss. No hydrocephalus. Irvin-white matter differentiation is preserved, without evidence of acute infarct. No abnormal extra- axial fluid collections. Mastoid air cells and visualized portions of the paranasal sinuses are clear. No acute bony findings. IMPRESSION: No evidence of an acute intracranial process.
[2024-05-30] MEDS: MIDODRINE HCL 5 MG TABLET PO SCH ×2 (10:59→16:33)
[2024-05-30 11:52] VITALS: BMI 25.7
[2024-05-30] MEDS: PNEUMOCOCCAL VACCINE 0.5 ML IMVAC ONE (13:00)
[2024-05-30] MEDS: MORPHINE 2 MG/ML SYR IV PRN (16:22)
[2024-05-30] MEDS: INSULIN REGULAR (HUMAN) 100 UNIT/ML SQ SCH (16:30)
--- NOTE | 2024-05-30 19:30 | HP ---
Date of Admission: 05/30/2024 Chief Complaint: Fall and leg pain. History Of Present Illness: This is an 88-year-old very pleasant male patient, who has problem with orthostatic hypotension, type 2 diabetes mellitus, hypertension, hyperlipidemia, and other chronic comorbidities, was doing fine in his normal usual state of health until early this morning around 4 o'clock when he woke up from his sleep. He felt like he wanted to go ahead and start making his coffee and go back to bed. As he was in the kitchen trying to prepare his coffee, all of a sudden he felt weak as if he is going to fall down and next second, he was on the ground and immediately started having pain in his right leg and he was subsequently brought into emergency room where further evaluation was done revealing presence of fracture of right proximal tibia and fibula fracture. The patient was evaluated and treated in the emergency room with application of splint to his right lower extremity and I was contacted requesting admission to the hospital and orthopedic consultation was requested from Dr. Cho. I saw him in emergency room. His daughter and son-in-law were present with him at bedside. The patient takes his midodrine 3 times a day, but during middle of the night, he says he wakes up, he has to go to bathroom and sometime he wakes up to go to kitchen to start his coffee and this is done during middle of the night before he takes his first dose of midodrine. He does take his midodrine 3 times a day. Allergies: TO ATORVASTATIN, CAUSING MYALGIA. Review of Systems: Musculoskeletal: As mentioned above. All other systems reviewed and negative. Medications: List reviewed. Past Medical History: Significant for hypothyroidism, type 2 diabetes mellitus with chronic kidney disease, hypertension, coronary artery disease, hyperlipidemia, paroxysmal atrial fibrillation, congestive heart failure, gastroesophageal reflux disease, chronic kidney disease stage 3B, anemia due to chronic kidney disease, osteoarthritis at multiple sites, benign prostatic hypertrophy. Past Surgical History: Patient had a craniotomy for cerebral hemorrhage, tonsillectomy, coronary artery stent placement in 1998 and 2004, coronary arterybypass surgery in 2002, cardioversion for atrial fibrillation in December 2021, right great toe surgery at age 10 years due to injury. Family History: Father , had diabetes and stroke. Mother , had diabetes. Sister had stroke. Social History: Prior history of smoking, quit long time ago. Use of alcohol negativ Physical Examination: Vital Signs: Weight pounds, height 6 feet inches, temperature . General: Awake, alert, oriented, not in distress. HEENT: Head atraumatic, normocephalic. Conjunctivae nonerythematous. Sclerae white. Mouth, no thrush or edema noted. Ears/Nose, no mass, lesion, discharge noted. Neck: Supple. No JVD, lymph nodes, bruit, thyromegaly noted. Lungs: Bilateral good equal air entry. Clear to auscultation. No rhonchi. No rales. Heart: Normal heart sounds, no murmur or gallop. Abdomen: Soft, bowel sounds normal. No guarding, rigidity, tenderness, mass, hepatosplenomegaly, distention, or bruit noted. 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 Remaining toes appear normal on physical exam. Skin: No rash, ulcer, cellulitis. Lymphatics: No lymph node enlargement in neck, supraclavicular, infraclavicular region. Neuro: No focal neurological deficit. Chest: Unremarkable. External Genitalia: Deferred. Rectal: Deferred. Laboratory Data: White count 11.10, hemoglobin 13.4, platelets 185. Sodium 139, potassium 3.6, chloride 103, bicarb 34, BUN 39, creatinine 1.67, glucose 102. Right knee x-ray shows proximal tibia and fibula fracture, mildly displaced. Chest x-ray shows chronic basilar airspace opacification, unchanged from 05/26/2023. CAT scan of the head was negative for any acute intracranial changes and x-ray of the pelvis was negative for any acute changes. Impression: 1. Fracture, right proximal tibia and fibula, with mild displacement. 2. Anemia due to chronic kidney disease. 3. Orthostatic hypotension. 4. Type 2 diabetes mellitus with chronic kidney disease. 5. Chronic kidney disease, stage IIIB. 6. Hypertension. 7. Hyperlipidemia. 8. Coronary artery disease. 9. Paroxysmal atrial fibrillation. 10. Chronic anticoagulation therapy. 11. Hypothyroidism. 12. Gastroesophageal reflux disease. 13. Benign prostatic hypertrophy. Plan: We will go ahead and admit the patient to hospital for further evaluation and management of this problem. The patient is appropriate for inpatient and is expected to spend 2 midnights in hospital. For his fracture of right tibia and fibula, the patient already had emergency management provided by ER physician with pain medication and placement of splint and we will consult Dr. Cho and follow up with him regarding his recommendation regarding further treatment. Pain medications will be given per order. We will also give nausea medication on an as-needed basis. For his chronic diastolic heart failure, we will continue his home medication per order and no need for further intervention. The patient is medically stable from that point of view. For diabetes, we will manage it with sliding scale insulin and his oral diabetic medications per order. For his hypertension, we will monitor blood pressure and consider medication depending on his blood pressure as per order. For his paroxysmal atrial fibrillation, we will continue his chronic anticoagulation therapy and no need for further intervention on it. For hypothyroidism, we will continue his levothyroxine as per order and no need for further intervention. Details and plan of treatment discussed with the patient and I also informed him that he should take his first dose of midodrine about 1 hour before getting out of bed in the morning and then second dose 5 hours later and third dose another 5 hours later. Total time spent today was 85 minutes including review of last hospital admission record from 05/26/2023, review of last office record, communication with the ER physician, performing evaluation and management of today's admission. I will see him tomorrow for followup. EARLINE/KOKO Voice ID: [id number] FLORINDA
[2024-05-30 20:21] LABS: Specific Gravity 1.027 (1.005-1.030); Sqamous Epithelial <5 /HPF (None Seen); Urine Bacteria <20 /HPF (<20); Urine Bilirubin NEGATIVE (Negative); Urine Blood Negative (Negative); Urine Clarity Clear (Clear); Urine Color Light-Yellow (Yellow); Urine Culture Reflex Order NOT NEEDED; Urine Glucose 4+ (Over) (Negative); Urine Ketones NEGATIVE (Negative); Urine Microscopic Reflex YN ORDER UMIC; Urine Mucus Slight /HPF (None Seen); Urine Nitrite NEGATIVE (Negative); Urine Protein 1+ (Negative); Urine RBC <5 /HPF (None Seen); Urine Urobilinogen Normal (Normal); Urine WBC <5 /HPF (<5)
[2024-05-30] MEDS: ROSUVASTATIN 10 MG TAB PO SCH (20:39)
[2024-05-30] MEDS: FERROUS SULFATE 325 MG TAB PO SCH (20:40)
[2024-05-30] MEDS: APIXABAN 2.5 MG TABLET PO SCH (20:40)
[2024-05-30] MEDS: DUTASTERIDE 0.5 MG GEL CAP PO SCH (20:40)
[2024-05-31 07:40] LABS: Absolute Eosinophils 0.1 K/uL (0-0.5); Absolute Lymphocytes (CBC) 1.6 K/uL (0.7-4.9); Absolute Monocytes 0.9 K/uL (0.1-1.3); Absolute Neutrophil 7.1 K/uL (1.8-8.0); Basophils % 0.5 % (0-1.3); Eosinophils % 1.2 % (0-4.4); Hematocrit 37.7 % (39.6-49.0); Hemoglobin 12.3 g/dL (13.6-17.9); MCH 31.5 pg (27.0-35.0); MCHC 32.7 g/dL (32.0-36.0); MCV 96.4 fL (80-100); MPV 9.1 fL (7.6-11.3); Monocytes % 9.6 % (3.3-12.3); Neutrophils % 72.7 % (41.7-73.7); Platelets 148 thou/uL (152-406); RBC Red Blood Cell Count 3.91 M/uL (4.33-5.43); Red Cell Distribution Width 13.8 % (12.1-15.2)
[2024-05-31 08:02] LABS: Albumin 2.9 g/dL (3.4-5.0); Albumin/Globulin Ratio 0.9 (1.1-1.8); Anion Gap 5.1 mEq/L (5.0-15.0); Bilirubin Total 1.4 mg/dL (0.2-1.0); Globulin 3.2 g/dL (2.3-3.5); Magnesium 2.4 mg/dL (1.6-2.4); Potassium 4.1 mEq/L (3.5-5.1); Protein, Total 6.1 g/dL (6.4-8.2); Thyroid Stimulating Hormone 0.802 uIU/mL (0.358-3.740)
[2024-05-31] MEDS: FUROSEMIDE 40 MG TABLET PO SCH (09:00)
[2024-05-31] MEDS: FARXIGA 10 MG PO SCH (09:00)
[2024-05-31] MEDS: AMIODARONE HCL 200 MG TAB PO SCH (09:48)
[2024-05-31] MEDS: INSULIN GLARGINE 100 UNIT/ML SQ SCH (09:48)
[2024-05-31] MEDS: CYANOCOBALAMIN 1,000 MCG TAB PO SCH (09:48)
[2024-05-31] MEDS: PANTOPRAZOLE 40MG TABLET PO SCH (09:59)
[2024-05-31] MEDS: LEVOTHYROXINE SOD 0.05 MG TABLET PO SCH (09:59)
--- NOTE | 2024-05-31 12:31 | EKG ---
Test Date: 2024-05-30 Test Time: 07:24:50 Membership Solicitor: JG MEASUREMENT RESULTS: Intervals: Rate: 69 HI: 274 QRSD: 166 QT: 568 QTc: 608 [place]: P: HI: 274 QRS: 116 T: 0 INTERPRETIVE STATEMENTS: Sinus rhythm with 1st degree AV block Right bundle branch block Abnormal ECG Compared to ECG 05/26/2023 23:24:30 Right bundle-branch block now present Right-axis deviation no longer present Intraventricular conduction delay no longer present T-wave abnormality no longer present Possible ischemia no longer present Electronically Signed On 05-31-24 12:30:00 CDT by Preet Emery
--- NOTE | 2024-05-31 23:13 | CON ---
Preoperative Diagnosis: Right proximal tibia fracture with concomitant fibular fracture. History Of Present Illness: Mr. Spencer lives independently at [place]. He sustained a fall and is a ssisted living. He was evaluated and has nondisplaced proximal tibia fracture and minimally displace d fibular fracture. On radiographs, his bone stock is extremely poor. He remains neurovascularly in tact. He has a long-leg splint at the time of this dictation. Plan: Will be to place him in a knee immobilizer and begin physical therapy protocols. NIDA/KOKO Voice ID: [id number] Report ID: [id number]
[2024-06-01] MEDS: MORPHINE 4 MG/ML SYR IV PRN (21:09)
[2024-06-01 22:18] VITALS: O2SAT 96
--- NOTE | 2024-06-01 22:46 | PN ---
Date of Progress Note: 05/31/2024 Subjective: The patient was seen this morning for followup. He was lying in bed, not in any distres s. No new complaints or problems reported by the patient. Denies any pain, nausea, vomiting. No ch est pain. No shortness of breath. Objective: Vital Signs: Reviewed. HEENT: Unremarkable. Lungs: Clear to auscultation. Heart: Sounds normal. Abdomen: Soft. Bowel sounds normal. No guarding, rigidity, tenderness, distention. Extremities: No leg edema. Pain present over right lower extremity. Laboratory Data: Reviewed. Impression: 1.Fracture, right proximal tibia and fibula. 2.Chronic kidney disease. 3.Diabetes mellitus. 4.Hypertension. 5.Congestive heart failure. Plan: We will go ahead and continue current medication. Orthopedic consultation is appreciated, and we will go ahead and have Physical Therapy work with the patient. Dr. Cho from Orthopedic Surg [facility] has cleared the patient for physical therapy and the patient will not require any surgical interv ention. We will continue current pain medications per order. Continue current medications for his c hronic medical problems as per order, and we will see him tomorrow for followup. EARLINE/MODL Voice ID: [id number] Report ID: [id number]
[2024-06-02 09:08] VITALS: BP 97/51; TEMP 97.1
--- NOTE | 2024-06-03 06:55 | DS ---
Date of Discharge: 06/02/2024 Disposition: Discharged to go to inpatient rehab. Physical Examination: HEENT: Unremarkable. Lungs: Clear to auscultation. Heart: Sounds normal. Abdomen: Soft. Bowel sounds normal. No guarding, rigidity, tenderness, distention. Extremities: No edema on the left leg. Right lower extremity has splint present involving the right lower leg. Discharge Medications And Instructions: See copy of transfer order MAR for details. Final Diagnoses: 1.Fracture, right proximal tibia and fibula, with mild displacement. 2.Anemia due to chronic kidney disease. 3.Orthostatic hypotension. 4.Type 2 diabetes mellitus with chronic kidney disease. Hospital Course: This is an 88-year-old pleasant male patient, who was admitted to the hospital afte r he fell down at home and he was brought into the ER and was diagnosed as having fracture of the rig ht proximal tibia and fibula. Please see dictated H and P for more information. After the patient w as evaluated in the emergency room, he was admitted to the hospital and orthopedic consultation was r equested from Dr. Cho. Conservative management was recommended by him. The patient has a splin t present over right lower extremity which was applied in the emergency room and Dr. Cho recomme nded physical therapy, and pain medication was ordered which has actually helped to control his pain very well. Overall, his other medical problems have remained stable. For his diabetes, we are manag ing his fingerstick blood sugar with sliding scale as well as giving long-acting insulin at a lower d ose. Physical Therapy was consulted. The patient started to participate well with physical therapy and we also requested consultation from inpatient rehab and the patient was evaluated and accepted fo r inpatient rehab. Medically, he was stable for discharge today and I will continue to follow up on the rehab floor. Labs upon admission, . Total time spent today was 35 minutes. EARLINE/MODL Voice ID: [id number] Report ID: [id number]
--- NOTE | 2024-06-04 21:36 | DS ---
Date of Discharge: 06/02/2024 Disposition: The patient was transferred to inpatient rehab on fifth floor. Physical Examination: HEENT: Unremarkable. Lungs: Clear to auscultation. Heart: Sounds normal. Abdomen: Soft. Bowel sounds normal. No guarding, rigidity, tenderness, distention. Extremities: No edema on the left leg. Right leg has splint present. Normal exam of toes. Laboratory Data: On admission on 05/30/2024, white count 11.10, hemoglobin 13.4, platelets of 185. Day after admission on 05/31/2024, white count 9.8, hemoglobin 12.3, platelets 148. For chemistry up on admission, sodium 139, potassium 3.6, chloride 103, bicarb 34, BUN 39, creatinine 1.67, glucose 10 2. On 05/31, sodium 137, potassium 4.1, chloride 102, bicarb 34, BUN 41, creatinine 1.70, glucose 10 7. Liver function tests unremarkable. TSH is 0.802. Discharge Medications And Instructions: Continue all current medications and orders and see copy of transfer order and MAR for details. Hospital Course: This is an 88-year-old very pleasant male patient, who fell down at home and starte d complaining of pain in his right leg and was brought into emergency room. After he was evaluated i n ER, he was diagnosed as having fracture of the proximal right tibia and fibula. The patient was ad mitted to the hospital. Splint was placed in the right lower leg in the emergency room and he was ad mitted with orthopedic consultation requested from Dr. Cho, who evaluated the patient and recomm ended conservative treatment with pain medications and physical therapy. Physical Therapy was consul bharat and the patient expressed desire to go to inpatient rehab for further ongoing therapy, so Social Service was consulted and after arrangements made, he was discharged to inpatient rehab in stable con dition where I will continue to follow up. Final Diagnoses: 1.Fracture, right proximal tibia and fibula, with mild displacement. 2.Anemia due to chronic kidney disease. 3.Orthostatic hypotension. 4.Type 2 diabetes mellitus with chronic kidney disease. Total time spent today 40 minutes. EARLINE/MODL Voice ID: [id number] Report ID: [id number]
== END 2024-06-02 10:15 | DRG 563 ==
LOC: ER 07:14 → ERHOLD 09:01 → 2ND 09:22
PROVIDERS: ADMIT Internal Medicine; ATTEND Internal Medicine
DX: S82.101A Unspecified fracture of upper end of right tibia, initial encounter for closed fracture (principal); I50.32 Chronic diastolic (congestive) heart failure; I13.0 Hypertensive heart and chronic kidney disease with heart failure and stage 1 through stage 4 chronic kidney disease, or unspecified chronic kidney disease; S82.401A Unspecified fracture of shaft of right fibula, initial encounter for closed fracture; N18.32 Chronic kidney disease, stage 3b; E11.22 Type 2 diabetes mellitus with diabetic chronic kidney disease; D63.1 Anemia in chronic kidney disease; E78.5 Hyperlipidemia, unspecified; E03.9 Hypothyroidism, unspecified; I95.1 Orthostatic hypotension; I48.0 Paroxysmal atrial fibrillation; K21.9 Gastro-esophageal reflux disease without esophagitis; N40.0 Benign prostatic hyperplasia without lower urinary tract symptoms; I25.10 Atherosclerotic heart disease of native coronary artery without angina pectoris; Z79.4 Long term (current) use of insulin; Z88.8 Allergy status to other drugs, medicaments and biological substances; Z79.01 Long term (current) use of anticoagulants; Z79.899 Other long term (current) drug therapy; Z79.890 Hormone replacement therapy; Y92.099 Unspecified place in other non-institutional residence as the place of occurrence of the external cause; W18.30XA Fall on same level, unspecified, initial encounter; Y99.9 Unspecified external cause status; Y93.01 Activity, walking, marching and hiking
CPT/HCPCS: 36415; 70450; 71045; 72170; 80048; 80053; 81001; 82550; 82947; 83735; 84443; 85025; 93005; 96361; 96374; 97161; 97530; 99285; J2270; J3010

== ENCOUNTER 2024-06-02 07:15 | Inpatient (IN) | payer OTHER ==
[2024-06-02] MEDS: MORPHINE 2 MG/ML SYR IV PRN (11:19)
[2024-06-02 14:07] VITALS: BMI 25.2
--- NOTE | 2024-06-02 14:54 | RAD REPORT ---
EXAM DESCRIPTION: RAD - Chest Pa And Lat (2 Views) - 06/02/2024 2:46 pm CLINICAL HISTORY: worsening pneumonia Chest pain. COMPARISON: Chest Single View dated 05/30/2024; Chest Pa And Lat (2 Views) dated 05/26/2023 FINDINGS: Emphysematous changes are present. Patchy opacity at the left base and small left pleural effusion is unchanged. The heart is mildly prominent. Sternotomy wires present. IMPRESSION: No significant change is seen compared to 05/30/2024.
--- NOTE | 2024-06-02 19:07 | HP ---
Date of Admission: 06/02/2024 Time Of Service: 1:10 p.m. Chief Complaint: "I fell and broke my right leg." History Of Present Illness: Mr. Spencer is an 88-year-old patient with hypothyroidism, diabetes mellitu s type 2, hypertension, dyslipidemia, paroxysmal atrial fibrillation, anemia, benign prostatic hypert rophy, who fell at home. The patient impacted right leg and developed pain in the area. He was seen at a local hospital and his evaluation identified a right proximal tibia fracture with concomitant f ibular fracture. There was also hypertension, diabetes mellitus, and of course pain from his fractur e. He was seen by Dr. Cho on the Orthopedic Service and had a brace placed with the plan to hav e leg e-immobilizer as he was put on nonweightbearing status. The patient is not felt to be a surgic al candidate. He did have of course weightbearing restriction which is to not put significant weight on the right leg. While hospitalized, of course pain was very severe and had to be managed with mul tiple modalities. He did also require oxygen supplementation. His blood work showed low RBCs and he moglobin, hematocrit, and platelets. He had hypertension as noted. Prior to the patient's fall, he was fully independent with all activities of daily living, functioning without the need of assistive device, doing his laundry, making his coffee, and driving independently. Since the fall, he is at mo derate assist for bed mobilization, maximal assistance with transfers, and moderate assistance with a mbulation and wheelchair mobilization. As a result of his comorbid conditions, Mr. Spencer is felt to b e an appropriate candidate for inpatient rehabilitation so that he may decrease the risk of rehospita lization and to help him return to his prior level of functioning. Past Medical History: Hypothyroidism, diabetes mellitus type 2, chronic kidney disease, hypertension , coronary artery disease, dyslipidemia, paroxysmal atrial fibrillation, congestive heart failure, ga stroesophageal reflux disease, osteoarthritis, anemia, benign prostatic hypertrophy. Allergies: LIPITOR CAUSES MUSCLE WEAKNESS. Medications: Gabapentin 100 mg twice daily, [place] 5/325 every 4 hours as needed, magnesium oxide 400 mg twice daily, melatonin 3 mg at bedtime, morphine 2 mg IV every 4 hours, Senakot-S 2 tablets at be dtime, tramadol 50 mg every 4 hours. Laboratory Studies: White blood cell count 9.8, hemoglobin 12.3, hematocrit 37.7, platelets 148. So dium 137, potassium 4.1, glucose 107, BUN 41, creatinine 1.7, calcium 8.9, magnesium 2.4, prealbumin 2.9. Family History: Noncontributory. Review of Systems: He does report pain going up to more than 10/10 in the right leg if he tries to bear weight. Otherwi se, pain is well managed when he is not mobilizing, rates perhaps less than 2. Otherwise, on his sys tems review, no fevers, chills. No nausea, vomiting. No rash. No psychiatric complaints. No activ e gastrointestinal or genitourinary complaints. Current Level Of Functioning: Requires setup assistance for eating, oral hygiene. Maximal assistanc e for toileting, bathing. Moderate assistance for upper body dressing. Maximal assistance for lower body dressing and donning and doffing footwear. Supervision for rolling jkdq-dt-qputd and sitting-t o-lying, maximum assistance. For his ability to slide on the bed, moderate assistance. Sit to stand , maximum assistance. Going from bed to chair, maximum assistance. Toileting, maximum assistance. Did not ambulate. Physical Examination: Vital Signs: Blood pressure 118/70, pulse 76, respiratory rate 18, temperature 97.5, oxygen saturati on 94%. Weight 196 pounds, height 6 feet, BMI 25.2. General: Mr. Spencer is sitting in a chair beside bed. Family at the bedside. HEENT: He is normocephalic, atraumatic. Sclerae anicteric. Oropharynx pink and moist. Neck: Supple. Chest: Clear. Heart: Regular. Extremities: Show no significant edema, cyanosis, or clubbing. His right lower extremity is bandage d from the thigh across the knee with immobilizer. It is bent at around 15 to 20 degrees at the knee . Neuro: In terms of his neurological examination, he has no focal deficits, worse or significant pain , and partially bend and immobilized right knee, but able to sense sensation throughout and again los s of function especially distally in the lower extremity and the left foot is fully strong. Rehab And Medical Assessment And Plan: Mr. Spencer is admitted to rehabilitation unit with impairment c ategory 09, orthopedic, other. His impairment group code is 08.9, other orthopedic. Etiologic diagn osis, right proximal tibia-fibula fracture with concomitant fibular fracture. His comorbidities are decreased mobility, decreased physical functioning, diabetes mellitus type 2, hypertension. Plan: 1.He will have physical, occupational, and if need be speech therapy 3.5 hours, 5 of 7 days. 2.His comorbid conditions are managed by Dr. Rice. Currently, list of medications are noted above. For the significant pain, he did have morphine 2 mg IV every 4 hours. We will put [place] 5/325 every 4 hours and add gabapentin 100 mg twice a day, magnesium 400 mg twice a day, melatonin 3 mg at bedti me, Senokot-S, and tramadol as noted. Comorbidities That Are Impacting Rehabilitation: His biggest issue is right leg fracture which is in the immobilizer, making it hard for him to be able to manage well. He has a nonweightbearing status with the right lower extremity and there are other avenues being explored to facilitate his ability to ambulate where he has a brace supported from the hip down, so he may be able to bear weight when t hat area is off-loaded. Otherwise, we will have his blood sugars evaluated and managed, rule out uri nary tract infection, encourage incentive spirometry, and have him to ambulate with a gait belt and r olling walker at all times to prevent additional falls. Rehab Specific Plan: Mr. Spencer will have physical, occupational, and if need be speech therapy for 3. 5 hours, 5 of 7 days, to improve his ability to transfer from bed to chair to toilet to a shower and perform toileting and showering, to perform upper and lower body dressing, to mobilize more than hous ehold distances, and to excise good judgment regarding his medications, physician followup to dischar ge, and for the recognition of worsening conditions such as shortness of breath for potential pneumon ia or pulmonary embolus and especially given the fracture and the immobilized right leg. Mr. Spencer has a good understanding of the process of admission to the inpatient [facility] and how he will benefit from physical, occupational, and if need be speech therapy. He will have 2 4 hours a day, 7 days a week skilled rehabilitation and nursing, daily physician evaluation and manag ement, and forensic social worker management for discharge planning, home equipment, and physician followup along with medication and the medication usage. If need be, additional help will be provided by the Orthopedic Service and that will be clarified with Dr. Cho if the patient can have different imm obilizer to have the leg more straight and then if need be, Hospitalist Service will be consulted. Barriers To Discharge: He is at a nonweightbearing status to right lower extremity and he is a tall person at 6 feet 2 inches, may require more help, and his family is able to provide at home and there fore may consider penitentiary if he is not thriving very well. Length Of Stay: About 2 weeks. Disposition: Currently home with family's help. Prognosis: Good. Rehab Specific Goals: 1.Become independent with upper and lower body dressing, donning and doffing footwear. 2.Perhaps modified independence to be able to ambulate at least household distances perhaps up to 25 0 feet with a rolling walker. 3.Independently propel a wheelchair 250 feet. 4.He may with min to mod assist go up and down 10 steps with bilateral handrails. 5.He should be able to perform cognitive functioning independently. The above goals were reviewed with Mr. Spencer and he is in agreement. By signing this document, I acknowledge I first performed a full physical examination on Mr. Spencer no later than 24 hours after his admission to the inpatient rehabilitation facility and determined that he is able to tolerate the above course of treatment at an intensive level for reasonable period of t dameon. A detailed individualized plan of care for him will be completed by hospital day 4 based on the preadmission screen, history and phy sical, and therapy evaluations. VAHE Voice ID: [id number]
[2024-06-02] MEDS: MAGNESIUM OXIDE 400 MG TAB PO SCH (19:48)
[2024-06-02] MEDS: GABAPENTIN 100 MG CAP PO SCH (19:48)
[2024-06-03 00:16] LABS: Specific Gravity 1.022 (1.005-1.030); Sqamous Epithelial None Seen /HPF (None Seen); Urine Bacteria None Seen /HPF (<20); Urine Bilirubin NEGATIVE (Negative); Urine Blood Negative (Negative); Urine Clarity Clear (Clear); Urine Color Light-Yellow (Yellow); Urine Culture Reflex Order NOT NEEDED; Urine Glucose 4+ (Over) (Negative); Urine Ketones NEGATIVE (Negative); Urine Micro Reflex YN NO BILL MICROSCOPIC; Urine Nitrite NEGATIVE (Negative); Urine Protein 1+ (Negative); Urine RBC <5 /HPF (None Seen); Urine Urobilinogen Normal (Normal); Urine WBC <5 /HPF (<5); Urine Yeast (Budding) Trace /HPF (None Seen)
[2024-06-03] MEDS: TRAMADOL HCL 50 MG TAB PO PRN (00:59)
[2024-06-03 07:20] LABS: Absolute Eosinophils 0.2 K/uL (0-0.5); Absolute Lymphocytes (CBC) 1.3 K/uL (0.7-4.9); Absolute Monocytes 0.8 K/uL (0.1-1.3); Basophils % 0.4 % (0-1.3); Hematocrit 35.3 % (39.6-49.0); Hemoglobin 11.8 g/dL (13.6-17.9); Lymphocytes % 13.6 % (15.3-44.8); MCH 31.9 pg (27.0-35.0); MCHC 33.5 g/dL (32.0-36.0); MCV 95.1 fL (80-100); MPV 9.7 fL (7.6-11.3); Monocytes % 8.9 % (3.3-12.3); Neutrophils % 75.1 % (41.7-73.7); Platelets 173 thou/uL (152-406); RBC Red Blood Cell Count 3.71 M/uL (4.33-5.43); Red Cell Distribution Width 13.6 % (12.1-15.2)
[2024-06-03 07:33] LABS: Albumin 2.6 g/dL (3.4-5.0); Anion Gap 8.7 mEq/L (5.0-15.0); Magnesium 2.2 mg/dL (1.6-2.4); Potassium 3.7 mEq/L (3.5-5.1); Prealbumin 12.7 mg/dL (20-40)
[2024-06-03] MEDS: MAGNESIUM HYDROXIDE 8% 30 ML PO PRN (16:01)
[2024-06-03] MEDS: APIXABAN 2.5 MG TABLET PO SCH (20:13)
[2024-06-03] MEDS: MELATONIN 3 MG TABLET PO PRN (20:13)
--- NOTE | 2024-06-03 21:55 | PN ---
Date of Progress Note: 06/03/2024 Subjective: The patient was seen this morning for followup. No new complaints or problems reported by him. Objective: General: He was on rehab floor, lying in bed, not in distress. Vital Signs: Reviewed. HEENT: Unremarkable. Lungs: Clear to auscultation. Heart: Sounds normal. Abdomen: Soft. Bowel sounds normal. No guarding, rigidity, tenderness, or distention. Extremities: No leg edema. Right lower extremity has immobilizer present in place of cast and patie nt is tolerating diet very well and it is helping to control his pain as well. Laboratory Data: White count 9.4, hemoglobin 11.8, platelets 173. Sodium 138, potassium 3.7, chlori de 102, bicarb 31, BUN 49, creatinine 1.74, glucose 110. Impression: 1.Right proximal tibia and fibula fracture with mild displacement. 2.Diabetes mellitus. 3.Chronic kidney disease. 4.Anemia. 5.Hypertension. Plan: We will go ahead and continue current medication. Continue current pain medication. We will continue current diabetes management. The patient is on Eliquis and we will continue that and I will see him tomorrow for followup. Physical therapy to be provided under guidance of Dr. Diaz. EARLINE/MODL Voice ID: [id number] Report ID: [id number]
--- NOTE | 2024-06-03 22:49 | PN ---
Date of Progress Note: 06/03/2024 Time Of Service: 1:20 p.m. Subjective: Mr. Spencer is in bed. He did say the pain is slightly better in the right leg where he pina s tibia and fibula fracture. He did do all the therapy as required. He is still constipated about 3 days without a bowel movement. Family is at the bedside and it was communicated the type of need th e patient may have after leaving as he is nonweightbearing in right lower extremity and will likely r emain so for a few more weeks. He will follow up with Dr. Cho who will likely image the lower l eg and determine if the weightbearing status which is nonweightbearing may be adjusted. Objective: No fevers, chills. Positive for constipation. Mild myalgias, arthralgias on the right l ower extremity. No rash. No psychiatric complaints. No headache. No other issues. Physical Examination: Vital Signs: Blood pressure 180/86, pulse 74, respiratory rate 18, temperature 97.4, oxygen saturati on 93%. Pain level ranged from [address] to 10. General: Again, Mr. Spencer is resting in bed in between therapy sessions. HEENT: He is normocephalic, atraumatic. Sclerae anicteric. Oropharynx pink and moist. Neck: Supple. Chest: Clear. Extremities: No significant edema. The right lower extremity is in immobilizer. Laboratory Studies: White blood cell count 9.4, hemoglobin 11.8, platelets 173. Sodium 138, potassi um 3.7, chloride 102, BUN 49, creatinine 1.74, glucose ranged from 110 to 196, calcium 9.1, magnesium 2.2, albumin 2.6, prealbumin 12.7. X-ray/imaging: Yesterday, chest x-ray was done to rule out pneumonia, there was no significant blackwell e compared to a study done on 05/30/2024, where there were emphysematous changes present, patchy opac ity in the left base, small left pleural effusion is unchanged, sternotomy wires seen, heart mildly p rominent in size. Medications: [place] 5/325 every 4 hours as needed, Eliquis 2.5 mg twice daily, Dulcolax suppository 1 0 mg per rectum as needed, gabapentin 100 mg twice daily, milk of mag 30 mL daily for constipation, m agnesium oxide 400 mg twice daily, melatonin 3 mg at bedtime. He does have morphine 2 mg IV every 4 hours as needed, Senokot-S 2 at bedtime, tramadol 50 mg every 4 hours as needed. Progress Made With Physical And Occupational Therapy: With his occupational therapy, maximum assista nce and extra time required for xrrxsr-em-mcu transfers with lower extremity in truncal upright posit ion due to pain. He does have significant fear of falling. Maximum assistance for skv-np-miylq and dpfnq-qd-fjcft transfers, toileting maximum assistance, bathing minimum assistance, upper body dressi ng minimum assistance, again requiring extra time to complete activities. Pain at one point was 9/10 . Mr. Spencer is making slow progress so far, however, he has just arrived in the unit, does have signific ant pain in the right knee. Pain medications were adjusted. Also, he has been constipated for about 3 to 4 days. Assessment: Mr. Spencer is an 88-year-old patient in the rehabilitation unit with right proximal tibia and fibula fracture. He has decreased mobility, decreased physical functioning, diabetes mellitus ty pe 2, hypertension, constipation, anxiety due to fear of falling, some difficulty with sleeping, mild insomnia. Plan: 1.Continue with physical and occupational therapy 3 hours a day, 5 of 7 days. 2.Continue with multiple medications to address neuropathic pain with gabapentin 100 mg twice daily, milk of magnesia for constipation, magnesium for muscle spasms, melatonin for insomnia. Still has m orphine IV, we will try to titrate off, tramadol for pain, Senokot for constipation, DVT prophylaxis with Eliquis 2.5 mg twice daily. Comorbidities That Are Impacting Rehabilitation: Mr. Spencer of course is nonweightbearing in the right lower extremity, making it somewhat difficult for him to be able to mobilize, unable to use a knee w alker because that area is very painful. His arms likely to be the very important means of immobiliz ing and transferring over the next several weeks and the left lower extremity and those are all he is working hard to improve strength, balance, coordination using those extremities. He will likely req uire continued supervision and care after discharge. This was discussed with his family, that is 24 hours, at least for few more weeks following his discharge. FAROOQ/KOKO Voice ID: [id number] Report ID: [id number]
[2024-06-04] MEDS: DUTASTERIDE 0.5 MG GEL CAP PO SCH ×2 (10:00→20:59)
--- NOTE | 2024-06-04 11:22 | PN ---
Date of Progress Note: 06/04/2024 Subjective: The patient was seen this morning for followup. No new complaints or problems reported by him. He was sitting in the wheelchair. Pain is well controlled. Objective: Vital Signs: Reviewed. HEENT: Unremarkable. Lungs: Clear to auscultation. Heart: Sounds normal. Abdomen: Soft. Bowel sounds normal. No guarding, rigidity, tenderness, distention. Extremities: No leg edema. Impression: 1.Fracture, right leg proximal tibia and fibula, with mild displacement. 2.Orthostatic hypotension. 3.Anemia. 4.Chronic kidney disease, stage IIIB. 5.Diabetes mellitus with chronic kidney disease. Plan: We will go ahead and continue current medications. The patient is on amiodarone for his atria l fibrillation along with Eliquis. We will continue that. He takes Farxiga for diabetes and we will continue that. I have asked nurse to find out if the patient took his Mounjaro injection this week or not and if not, daughter should bring it from home, so he can use his weekly injection. We will c ontinue his current pain medication. Discontinue morphine as the patient now should be well controll ed with oral pain medication. We will see him tomorrow for followup. EARLINE/MODL Voice ID: [id number] Report ID: [id number]
[2024-06-04] MEDS: CYANOCOBALAMIN 1,000 MCG TAB PO SCH (11:41)
[2024-06-04] MEDS: MIDODRINE HCL 5 MG TABLET PO SCH (13:28)
--- NOTE | 2024-06-04 14:13 | P.RH.PN ---
Estimated Length of Stay: 15 Expected Discharge Date: 06/16/24 Discharge Disposition Plan: Home Family Support: Yes Assisted Goal: Mobility, Transfers, Self Care Vital Signs: Last Vital Signs Temp 97.0 F 06/04/24 08:00 Pulse 64 06/04/24 08:00 Resp 18 06/04/24 08:00 BP 100/55 L 06/04/24 08:00 Pulse Ox 95 06/04/24 08:00 Laboratory: Laboratory Last Values WBC 9.40 thou/uL (4.3-10.9) 06/03/24 06:34 RBC 3.71 M/uL (4.33-5.43) L 06/03/24 06:34 Hgb 11.8 g/dL (13.6-17.9) L 06/03/24 06:34 Hct 35.3 % (39.6-49.0) L 06/03/24 06:34 MCV 95.1 fL (80-100) 06/03/24 06:34 MCH 31.9 pg (27.0-35.0) 06/03/24 06:34 MCHC 33.5 g/dL (32.0-36.0) 06/03/24 06:34 RDW 13.6 % (12.1-15.2) 06/03/24 06:34 Plt Count 173 thou/uL (152-406) 06/03/24 06:34 MPV 9.7 fL (7.6-11.3) 06/03/24 06:34 Neutrophils % 75.1 % (41.7-73.7) H 06/03/24 06:34 Lymphocytes % 13.6 % (15.3-44.8) L 06/03/24 06:34 Monocytes % 8.9 % (3.3-12.3) 06/03/24 06:34 Eosinophils % 2.0 % (0-4.4) 06/03/24 06:34 Basophils % 0.4 % (0-1.3) 06/03/24 06:34 Absolute Neutrophils 7.0 K/uL (1.8-8.0) 06/03/24 06:34 Absolute Lymphocytes 1.3 K/uL (0.7-4.9) 06/03/24 06:34 Absolute Monocytes 0.8 K/uL (0.1-1.3) 06/03/24 06:34 Absolute Eosinophils 0.2 K/uL (0-0.5) 06/03/24 06:34 Absolute Basophils 0.0 K/uL (0-0.5) 06/03/24 06:34 Sodium 138 mEq/L (136-145) 06/03/24 06:34 Potassium 3.7 mEq/L (3.5-5.1) 06/03/24 06:34 Chloride 102 mEq/L (98-107) 06/03/24 06:34 Carbon Dioxide 31 mEq/L (21-32) 06/03/24 06:34 Anion Gap 8.7 mEq/L (5.0-15.0) 06/03/24 06:34 BUN 49 mg/dL (7-18) H 06/03/24 06:34 Creatinine 1.74 mg/dL (0.70-1.30) H 06/03/24 06:34 Est GFR (CKD-EPI) 37 ml/min (=/>90) L 06/03/24 06:34 Glucose 110 mg/dL (74-106) H 06/03/24 06:34 POC Glucose 213 mg/dL (65-120) H 06/04/24 11:14 Calcium 9.1 mg/dL (8.5-10.1) 06/03/24 06:34 Magnesium 2.2 mg/dL (1.6-2.4) 06/03/24 06:34 Albumin 2.6 g/dL (3.4-5.0) L 06/03/24 06:34 Prealbumin 12.7 mg/dL (20-40) L 06/03/24 06:34 Urine Color Light-yellow (Yellow) 06/02/24 23:30 Urine Clarity Clear (Clear) 06/02/24 23:30 Urine pH 5.0 (5.0-7.0) 06/02/24 23:30 Ur Specific [place] 1.022 (1.005-1.030) 06/02/24 23:30 Glucose (UA)(Auto) 4+ (over) (Negative) H 06/02/24 23:30 Urine Ketones Negative (Negative) 06/02/24 23:30 Urine Blood Negative (Negative) 06/02/24 23:30 Urine Nitrite Negative (Negative) 06/02/24 23:30 Urine Bilirubin Negative (Negative) 06/02/24 23:30 Urine Urobilinogen Normal (Normal) 06/02/24 23:30 Ur Leukocyte Esterase Negative Nya/uL (Negative) 06/02/24 23:30 Urine RBC <5 /HPF (None Seen) 06/02/24 23:30 Urine WBC <5 /HPF (<5) 06/02/24 23:30 Ur Squamous Epith Cells None seen /HPF (None Seen) 06/02/24 23:30 Urine Bacteria None seen /HPF (<20) 06/02/24 23:30 Urine Yeast (Budding) Trace /HPF (None Seen) H 06/02/24 23:30 Urine Culture Reflexed Not needed 06/02/24 23:30 Urine Total Protein 1+ (Negative) H 06/02/24 23:30 Weight: 196 lb 6.4 oz Wound Present: No Physician Update: Labs reviewed and are stable with mildly elevated Irrigation Equipment Remover of 1.74 and low prealbumin. BIMS 14. Right knee pain is 10/10. Increase gabapentin to 300 mg twice daily. Plans to go home with daughter. Mod assist with sit to stand. Poor energy, will add B12 injection and oral. Summary: Patient's care plan and penitentiary goals have been reviewed and revised as necessary. Please see the Rehabilitation Signature page for all necessary signatures.
[2024-06-04] MEDS: CYANOCOBALAMIN 1000MCG/ML INJ IM ONE (16:08)
[2024-06-04] MEDS: FERROUS SULFATE 325 MG TAB PO SCH (20:59)
[2024-06-04] MEDS: ROSUVASTATIN 10 MG TAB PO SCH (21:00)
[2024-06-04] MEDS: LOPERAMIDE HCL 2 MG CAPSULE PO ONE (21:00)
[2024-06-04] MEDS: GABAPENTIN 300 MG CAP PO SCH (21:00)
[2024-06-05] MEDS ORDERED: INSULIN DEGLUDEC 34 UNIT SQ SCH (06:00)
[2024-06-05] MEDS: INSULIN GLARGINE 100 UNIT/ML SQ SCH (06:11)
[2024-06-05] MEDS: LEVOTHYROXINE SOD 0.05 MG TABLET PO SCH (06:46)
[2024-06-05] MEDS: PANTOPRAZOLE 40MG TABLET PO SCH (06:46)
[2024-06-05] MEDS: AMIODARONE HCL 200 MG TAB PO SCH (07:27)
[2024-06-05] MEDS: FUROSEMIDE 40 MG TABLET PO SCH (07:29)
[2024-06-05] MEDS: DAPAGLIFLOZIN 10 MG PO SCH (07:30)
[2024-06-05] MEDS ORDERED: DAPAGLIFLOZIN 10 MG PO SCH (08:00)
[2024-06-05] MEDS ORDERED: DUTASTERIDE 0.5 MG GEL CAP PO SCH (08:00)
[2024-06-05] MEDS: SEMAGLUTIDE 1 MG SQ SCH (08:00)
[2024-06-05] MEDS ORDERED: MIDODRINE HCL 5 MG TABLET PO SCH (09:00)
[2024-06-05] MEDS: MIDODRINE HCL 5 MG TABLET PO SCH (11:14)
--- NOTE | 2024-06-05 15:30 | PN ---
Date of Progress Note: 06/05/2024 Subjective: The patient was seen this morning for followup. No new complaints or problems reported by patient. He was lying in bed not in distress. Objective: Vital Signs: Reviewed. HEENT: Unremarkable. Lungs: Clear to auscultation. Heart: Sounds normal. Abdomen: Soft. Bowel sounds normal. No guarding, rigidity, tenderness, distention. Extremities: No leg edema. Impression: 1.Fracture, right proximal tibia and fibula, with mild displacement. 2.Orthostatic hypotension. 3.Type 2 diabetes mellitus. 4.Chronic anticoagulation therapy. 5.Atrial fibrillation, chronic. Plan: We will go ahead and continue current Eliquis and amiodarone for atrial fibrillation. Continu e current pain medication as needed. The patient's fingerstick blood sugar readings reviewed. We wi ll continue his insulin, but reduce long-acting insulin from 34 units daily to 20 units daily to avoi d any possibility of hypoglycemia problem while in the hospital because food intake while in the hosp ital may not be as much as what he does at home. In any case, we will continue to monitor it closely and I will see him tomorrow for followup. EARLINE/MODL Voice ID: [id number] Report ID: [id number]
[2024-06-06] MEDS: INSULIN GLARGINE 100 UNIT/ML SQ SCH (05:25)
[2024-06-06] MEDS: HYDROCODONE/APAP 5/325 MG TAB PO PRN (22:21)
[2024-06-07] MEDS: SEMAGLUTIDE 1 MG SQ SCH (08:00)
--- NOTE | 2024-06-07 08:08 | PN ---
Date of Progress Note: 06/06/2024 Subjective: The patient was seen this morning for followup. No new complaints or problems reported by the patient. His diarrhea problem has improved as he reports. Denies any abdominal pain, nausea, vomiting. Objective: Vital Signs: Reviewed. HEENT: Unremarkable. Lungs: Clear to auscultation. Heart: Sounds normal. Abdomen: Soft, bowel sounds normal. No guarding, rigidity, tenderness. Extremities: Right leg has a knee immobilizer in place. Impression: 1.Fracture tibia and fibula. 2.Type 2 diabetes mellitus. 3.Orthostatic hypotension. 4.Atrial fibrillation. 5.Chronic anticoagulation therapy. Plan: 1.We will go ahead and continue amiodarone and Eliquis for atrial fibrillation. We will continue cu rrent insulin for diabetes management. Fingerstick blood sugar readings reviewed. Continue current pain medication. 2.Good control and continue physical therapy under guidance of Dr. Diaz. EARLINE/MODL Voice ID: [id number] Report ID: [id number]
[2024-06-07] MEDS: LIDOCAINE 4% PATCH TOP SCH (11:33)
[2024-06-07] MEDS: NA CHLORIDE 0.9% 1,000 ML IV SCH (11:34)
[2024-06-07] MEDS: SEMAGLUTIDE 2 MG/3 ML SQ SCH (13:33)
[2024-06-08] MEDS ORDERED: LIDOCAINE 4% PATCH TOP SCH (08:00)
--- NOTE | 2024-06-08 09:14 | PN ---
Date of Progress Note: 06/07/2024 Subjective: The patient was seen this morning for followup. No new complaints or problems reported by the patient, lying in bed, not in distress. Objective: Vital Signs: Reviewed. HEENT: Unremarkable. Lungs: Clear to auscultation. Heart: Sounds normal. Abdomen: Soft. Bowel sounds normal. No guarding, rigidity, tenderness, distention. Extremities: No leg edema. Impression: 1.Fracture, right proximal tibia and fibula. 2.Diabetes mellitus. 3.Orthostatic hypotension. 4.Chronic atrial fibrillation. 5.Chronic anticoagulation therapy. Plan: We will go ahead and continue to follow with Dr. Diaz for physical therapy. Continue amio darone and Eliquis per order. Continue current diabetes management and midodrine for orthostatic hyp otension. I will see him tomorrow for followup. EARLINE/MODL Voice ID: [id number] Report ID: [id number]
[2024-06-08] MEDS ORDERED: AMIODARONE HCL 200 MG TAB PO SCH (10:12)
[2024-06-08] MEDS ORDERED: FUROSEMIDE 40 MG TABLET PO SCH (10:13)
[2024-06-08] MEDS: AMIODARONE HCL 200 MG TAB PO SCH (10:48)
[2024-06-08] MEDS: FUROSEMIDE 40 MG TABLET PO SCH (10:49)
[2024-06-08] MEDS: ACETAMINOPHEN 500 MG TAB PO PRN (10:49)
--- NOTE | 2024-06-08 23:02 | PN ---
Date of Progress Note: 06/08/2024 Time Of Service: 1:15 p.m. Subjective: Mr. Spencer is resting in bed in between therapy sessions. He says the pain below the righ t knee is improving somewhat and that area was of course where he has fractures and there is signific ant pain in the area. He feels he is making good progress so far. Objective: Again, some improved pain in the right tccfm-hyw-xqhb fracture site. Otherwise, no fever s, chills, myalgias, arthralgias other than mentioned. No rash. No other complaints. Physical Examination: Vital Signs: Blood pressure 118/58 and he did have a significant drop from that to 88/48 as he was g oing from a lying to a standing position. Earlier while lying, blood pressure 134/63, pulse 69, temp erature 97.6, oxygen saturation 93%. General: Mr. Spencer does have the left TOÑO hose above the knee and abdominal binder when ambulating. HEENT: Otherwise, he is normocephalic, atraumatic. Sclerae anicteric. Oropharynx moist. Neck: Supple. Chest: Clear. Extremities: The right leg is in an e-immobilizer. Medications: He now has Cordarone 200 mg daily and Lasix noted is 40 mg scheduled daily. His other medications include tramadol now 50 mg every 4 hours, and other medications are unchanged. Laboratory Studies: Blood glucose ranged from 141 to 159. Progress Made With Physical And Occupational Therapy: With physical therapy, completed wheelchair mo bilization covering 350 feet with bilateral upper extremities and left lower extremity with contact g uard assistance. He was able to go at least 150 feet without a rest break. Also completed another 3 50 feet with contact guard assistance with 2 rest breaks in the afternoon. With his occupational the rapy, maximum assistance over lower extremities truncal upright position for vkroal-kn-auc transfer d ue to right lower extremity pain. His blood pressure was noted to be too low for him to get to showe r as he became symptomatic. However, he was independent with oral care, washing and drying hands and face, and shaved with a razor. Mr. Spencer is making good progress so far with his physical and occupational therapy. Pain is better m anaged. However, he does have significant orthostatic hypotension and despite the abdominal binder a nd left TOÑO hose with the right knee in e-immobilizer, still having significant orthostatics. He is followed by Dr. Rice. We will consider and actually did put an order to hold his antihypertensive me dications if systolic is less than 120 and potentially to add midodrine to support his blood pressure when he is ambulating during the daytime. Assessment: Mr. Spencer is an 88-year-old patient, admitted to the rehabilitation unit with right proxi mal tibia and fibula fracture, from which he is recovering in a fair way. He does have orthostatic h ypotension that is significant and poses a problem where he may potentially fall with resulting injur y. He has additional comorbidities of diabetes mellitus, decreased mobility, decreased physical func tioning, anxiety, and insomnia. Also, there is again a fear of falling. Plan: 1.Continue with physical and occupational therapy for 3 hours a day, 5 of 7 days. 2.His comorbid conditions are addressed by continuing current medication regimen and again may add F lorinef or midodrine for pressure support and hold antihypertensive medications. Comorbidities That Are Impacting Rehabilitation: His orthostatic hypotension is perhaps a bigger com orbid at this point, making it difficult for him to ambulate successfully and we will re-address the issue again and may suggest the midodrine 5 mg in the morning. LB/MODL Voice ID: [id number] Report ID: [id number]
--- NOTE | 2024-06-09 00:11 | PN ---
Date of Progress Note: 06/08/2024 Subjective: The patient was seen this morning for followup. No new complaints or problems reported. He was lying in bed, not in distress. Objective: Vital Signs: Reviewed. HEENT: Unremarkable. Lungs: Clear to auscultation. Heart: Sounds normal. Abdomen: Soft. Bowel sounds normal. No guarding, rigidity, tenderness, distention. Extremities: No leg edema. Laboratory Data: No new labs today. Impression: 1.Fracture, right proximal tibia and fibula. 2.Diabetes mellitus. 3.Chronic diastolic heart failure. 4.Chronic atrial fibrillation. 5.Chronic anticoagulation therapy. 6.Orthostatic hypotension. Plan: We will go ahead and continue current midodrine. We will get orthostatic vital signs today an d then we will decide if we need to make any adjustment on medication or not. Continue current diabe maria a management. Continue physical therapy under guidance of Dr. Diaz. We will continue current Eliquis and amiodarone per order. EARLINE/MODL Voice ID: [id number] Report ID: [id number]
[2024-06-09] MEDS: TRAMADOL HCL 50 MG TAB PO PRN (06:58)
[2024-06-09] MEDS: MIDODRINE HCL 5 MG TABLET PO SCH (11:17)
[2024-06-09] MEDS: BISACODYL 10 MG RECTAL SUPP PR PRN (14:57)
--- NOTE | 2024-06-09 19:59 | PN ---
Date of Progress Note: 06/09/2024 Time Of Service: 1:10 p.m. Subjective: Mr. Spencer is resting in bed while family at the foot of the bed. He does report doing be tter today, but still has significant pain below the right knee where he has a fracture. Otherwise, feeling good about his progress. Objective: Mild pain below the right knee, which becomes moderate as he begins to ambulate and blackwell e positions. Mild myalgias, arthralgias in the lower extremities. Otherwise, no other complaints. Physical Examination: Vital Signs: Blood pressure 131/67, pulse of 68, respiratory rate 16, temperature 97.4, oxygen satur ation 93%. He did have significant orthostatics earlier today, the patient while lying 118/58, sitti ng 96/54, and standing 88/48, pulse down to 60s. The patient did have an increase in his midodrine. Still has amiodarone 200 mg in the morning, that was switched to the nighttime. HEENT: He is normocephalic, atraumatic. Sclerae anicteric. Oropharynx pink, moist. Neck: Supple. Chest: Clear. Extremities: The right leg is in the immobilizer. He has when ambulating abdominal binder and left leg TOÑO hose. Laboratory Studies: Blood sugars ranged from 105 to 174. Medications: Again, his amiodarone was switched from 200 mg in morning to 200 mg at night. He does have midodrine added to 10 mg 3 times daily. Continues all other medications unchanged. X-ray/imaging: No new x-rays or imaging. Progress Made With Physical And Occupational Therapy: With physical therapy, bed mobility was with m oderate assistance, sliding board transfer with moderate assistance. Minimum assistance to initiate the stand and pivot transfer. Wheelchair mobilization, 325 feet and 85 feet with contact guard to [facility] assistance and 3 rest breaks. With occupational therapy, he did work with a Thera-Band to impr ove triceps strength to help with his transfers. Mr. Spencer is making fair overall progress with physical and occupational therapy, being able to mobili ze given the restrictions of the severe pain in the right lower extremity, which is mitigated by mult iple medications. He has a limitation of significant orthostatic drop in blood pressure, likely from autonomic dysfunction and has midodrine 3 times daily. His amiodarone is switched to night from day as to control heart rate and blood pressure. Assessment: Mr. Spencer is an 88-year-old patient in the rehabilitation unit with right proximal tibia- fibula fracture, who is making fair overall progress. He has significant orthostatic hypotension in addition to heart rate control issues which again managed by amiodarone. He has constipation, manage d with Senokot, Crestor for dyslipidemia, Protonix for GE reflux, DVT prophylaxis is on board with El iquis 2.5 mg twice daily. He has ferrous sulfate for anemia with vitamin B12, Semglee insulin for di abetes, and Synthroid for hypothyroidism. Plan: 1.He will continue with physical and occupational therapy as noted 3 hours a day, 5 of 7 days. 2.Continue with all comorbid condition medications as noted and he is followed by Dr. Rice for his c omorbid issues and medical management. Comorbidities That Are Impacting Rehabilitation: The biggest issue is orthostatic hypotension and ag ain mitigated by mechanical and medical means. LB/MODL Voice ID: [id number] Report ID: [id number]
[2024-06-10 07:48] LABS: Absolute Basophils 0.1 K/uL (0-0.5); Absolute Eosinophils 0.4 K/uL (0-0.5); Absolute Lymphocytes (CBC) 1.4 K/uL (0.7-4.9); Absolute Monocytes 0.8 K/uL (0.1-1.3); Absolute Neutrophil 5.8 K/uL (1.8-8.0); Basophils % 0.7 % (0-1.3); Eosinophils % 4.2 % (0-4.4); Hematocrit 35.5 % (39.6-49.0); Hemoglobin 11.7 g/dL (13.6-17.9); Lymphocytes % 16.5 % (15.3-44.8); MCH 31.8 pg (27.0-35.0); MCV 96.6 fL (80-100); MPV 8.9 fL (7.6-11.3); Monocytes % 9.1 % (3.3-12.3); Neutrophils % 69.5 % (41.7-73.7); Platelets 269 thou/uL (152-406); RBC Red Blood Cell Count 3.68 M/uL (4.33-5.43); Red Cell Distribution Width 14.1 % (12.1-15.2)
--- NOTE | 2024-06-10 07:50 | PN ---
Date of Progress Note: 06/09/2024 Subjective: The patient was seen this morning for followup. No new complaints or problems reported by the patient. Lying in bed, not in acute distress Objective: Vital Signs: Reviewed. HEENT: Unremarkable. Lungs: Clear to auscultation. Heart: Sounds normal. Abdomen: Soft. Bowel sounds normal. No guarding, rigidity, tenderness, distention. Extremities: No leg edema. Impression: 1.Fracture, right proximal tibia and fibula. 2.Atrial fibrillation. 3.Chronic anticoagulation therapy. 4.Orthostatic hypotension. Plan: We will go ahead and continue current amiodarone and Eliquis per order. The patient's orthost atic vital signs from yesterday still shows drop in his systolic blood pressure in standing position compared to sitting and supine position, so we will increase the dose of midodrine from 5 mg 3 times a day to 10 mg 3 times a day. I did talk to the patient regarding advance directives and in the even t of cardiopulmonary arrest, the patient does not want any heroic measures like CPR, defibrillation, or ventilator support and would like for God and nature to take its course and keep him comfortable. DNR order was written in the chart and outpatient DNR form was signed for him. EARLINE/MODL Voice ID: [id number] Report ID: [id number]
[2024-06-10 08:11] LABS: Albumin 2.3 g/dL (3.4-5.0); Anion Gap 6.1 mEq/L (5.0-15.0); Magnesium 2.4 mg/dL (1.6-2.4); Potassium 4.1 mEq/L (3.5-5.1)
[2024-06-10] MEDS: DOCUSATE NA/SENNA CONC 1 TAB PO PRN (20:28)
[2024-06-10] MEDS: AMIODARONE HCL 200 MG TAB PO SCH (20:28)
[2024-06-10] MEDS: ENSURE HIGH PROTEIN 237 ML CAN PO SCH (20:28)
--- NOTE | 2024-06-10 23:25 | PN ---
Date of Progress Note: 06/10/2024 Time Of Service: 1:10 p.m. Subjective: Mr. Spencer is resting in bed. His pain in right below the knee fracture is improving and he is mobilizing more and feeling more confident about his recovery. Objective: Mild pain below the right knee with his mobilization, goes up to moderate pain as he mobi lizes. Otherwise, no fevers, chills. Mild myalgias, arthralgias. No rash. No other complaints. Physical Examination: Vital Signs: Blood pressure 124/60, pulse of 70, when sitting 91/49. He did say he was felt a littl e bit better today with orthostatics after midodrine was adjusted to more in the morning. His comorb idities are managed by Dr. Rice. HEENT: He is normocephalic, atraumatic. Sclerae anicteric. Oropharynx is pink. Chest: Clear. Extremities: No significant edema, cyanosis, or clubbing in the extremities. Laboratory Studies: White blood cell count 8.4, hemoglobin 11.7, platelets 269. Sodium 139, potassi um 4.1, chloride 103, BUN 34, creatinine 1.66, glucose ranged from 111 to 171, calcium 9.0, magnesium 2.4, prealbumin 11.0, albumin 2.3. X-ray/imaging: No new x-rays or imaging. Medications: His medications have been reviewed. He is now taking the amiodarone at night instead o f during the day, which may be helpful for his orthostatic hypotension. Also, has Ensure high protei n for his malnutrition. Other medications are unchanged and have been reviewed. Progress Made With Physical And Occupational Therapy: Today, with physical therapy, completed [facility] hair mobilization 250 feet with modified independence. Completed uak-bg-yvrvx transfers with moderat e assistance. Azgtk-lk-xwjqk transfers, moderate assistance. With occupational therapy, moderate as sistance. Xisasn-bv-ony transfer, independent with oral care, washing and drying face and hands, sha ving independent. Maximum assistance for clothing management. Mr. Spencer is making good progress overall with physical and occupational therapy despite pain in the r ight gusbx-bic-magp area where he has fracture. He has decreased mobility, decreased physical functi oning, orthostatic hypotension from autonomic dysfunction, GE reflux, dyslipidemia, insomnia, some ep isodes of constipation that resolved, diabetes mellitus, hypothyroidism, and cardiac dysrhythmia. Plan: 1.He will continue with physical and occupational therapy, 3 hours a day, 5 of 7 days. 2.Continue Eliquis for DVT prophylaxis, duloxetine for constipation, amiodarone for heart rate and b lood pressure control, Lasix for fluid management, ferrous sulfate for anemia, gabapentin for neuropa thic pain, magnesium oxide for muscle spasms, Synthroid for hypothyroidism, Semglee 20 units subcutan eously 6 in the morning for his diabetes mellitus, Protonix for GE reflux, Crestor, dyslipidemia, tra madol for pain. Comorbidities That Are Impacting Rehabilitation: His orthostatics are the big issues; however, he is doing better today compared to few days ago after his midodrine dosage was increased. FAROOQ/KOKO Voice ID: [id number] Report ID: [id number]
[2024-06-11] MEDS: FLUDROCORTISONE 0.1 MG TAB PO SCH (12:53)
--- NOTE | 2024-06-11 14:21 | P.RH.PN ---
Estimated Length of Stay: 15 Expected Discharge Date: 06/15/24 Discharge Disposition Plan: Home Family Support: Yes Half-Way Goal: Mobility, Transfers, Self Care Vital Signs: Last Vital Signs Temp 97.2 F 06/11/24 08:00 Pulse 58 06/11/24 08:06 Resp 16 06/11/24 08:00 BP 103/51 L 06/11/24 08:06 Pulse Ox 94 06/11/24 08:00 Laboratory: Laboratory Last Values WBC 8.40 thou/uL (4.3-10.9) 06/10/24 07:20 RBC 3.68 M/uL (4.33-5.43) L 06/10/24 07:20 Hgb 11.7 g/dL (13.6-17.9) L 06/10/24 07:20 Hct 35.5 % (39.6-49.0) L 06/10/24 07:20 MCV 96.6 fL (80-100) 06/10/24 07:20 MCH 31.8 pg (27.0-35.0) 06/10/24 07:20 MCHC 33.0 g/dL (32.0-36.0) 06/10/24 07:20 RDW 14.1 % (12.1-15.2) 06/10/24 07:20 Plt Count 269 thou/uL (152-406) 06/10/24 07:20 MPV 8.9 fL (7.6-11.3) 06/10/24 07:20 Neutrophils % 69.5 % (41.7-73.7) 06/10/24 07:20 Lymphocytes % 16.5 % (15.3-44.8) 06/10/24 07:20 Monocytes % 9.1 % (3.3-12.3) 06/10/24 07:20 Eosinophils % 4.2 % (0-4.4) 06/10/24 07:20 Basophils % 0.7 % (0-1.3) 06/10/24 07:20 Absolute Neutrophils 5.8 K/uL (1.8-8.0) 06/10/24 07:20 Absolute Lymphocytes 1.4 K/uL (0.7-4.9) 06/10/24 07:20 Absolute Monocytes 0.8 K/uL (0.1-1.3) 06/10/24 07:20 Absolute Eosinophils 0.4 K/uL (0-0.5) 06/10/24 07:20 Absolute Basophils 0.1 K/uL (0-0.5) 06/10/24 07:20 Sodium 138 mEq/L (136-145) 06/10/24 07:20 Potassium 4.1 mEq/L (3.5-5.1) 06/10/24 07:20 Chloride 103 mEq/L (98-107) 06/10/24 07:20 Carbon Dioxide 33 mEq/L (21-32) H 06/10/24 07:20 Anion Gap 6.1 mEq/L (5.0-15.0) 06/10/24 07:20 BUN 34 mg/dL (7-18) H 06/10/24 07:20 Creatinine 1.66 mg/dL (0.70-1.30) H 06/10/24 07:20 Est GFR (CKD-EPI) 39 ml/min (=/>90) L 06/10/24 07:20 Glucose 111 mg/dL (74-106) H 06/10/24 07:20 POC Glucose 115 mg/dL (65-120) 06/11/24 11:53 Calcium 9.0 mg/dL (8.5-10.1) 06/10/24 07:20 Magnesium 2.4 mg/dL (1.6-2.4) 06/10/24 07:20 Albumin 2.3 g/dL (3.4-5.0) L 06/10/24 07:20 Prealbumin 11.0 mg/dL (20-40) L 06/10/24 07:20 Urine Color Light-yellow (Yellow) 06/02/24 23:30 Urine Clarity Clear (Clear) 06/02/24 23:30 Urine pH 5.0 (5.0-7.0) 06/02/24 23:30 Ur Specific [place] 1.022 (1.005-1.030) 06/02/24 23:30 Glucose (UA)(Auto) 4+ (over) (Negative) H 06/02/24 23:30 Urine Ketones Negative (Negative) 06/02/24 23:30 Urine Blood Negative (Negative) 06/02/24 23:30 Urine Nitrite Negative (Negative) 06/02/24 23:30 Urine Bilirubin Negative (Negative) 06/02/24 23:30 Urine Urobilinogen Normal (Normal) 06/02/24 23:30 Ur Leukocyte Esterase Negative Nya/uL (Negative) 06/02/24 23:30 Urine RBC <5 /HPF (None Seen) 06/02/24 23:30 Urine WBC <5 /HPF (<5) 06/02/24 23:30 Ur Squamous Epith Cells None seen /HPF (None Seen) 06/02/24 23:30 Urine Bacteria None seen /HPF (<20) 06/02/24 23:30 Urine Yeast (Budding) Trace /HPF (None Seen) H 06/02/24 23:30 Urine Culture Reflexed Not needed 06/02/24 23:30 Urine Total Protein 1+ (Negative) H 06/02/24 23:30 Weight: 196 lb 6.4 oz Wound Present: No Closed Surgical Incision Present: No Negative Pressure Wound Therapy Present: No Physician Update: Labs reviewed and are stable. BIMS 14. Fully oriented. Pain has lessened with multimodailty treatments. Bowels functioning well without constipation. He will go to SNF due to poor progression. He is NWB with the right lower extremity. Still has orthstatic hypotention. Keeping his NWB status very well. Doing slide board transfers. He still has pitting edema. Limited functional gains with selfcare. Now min to mod assist with his ADLs. 0/5 residential goals. Summary: Patient's care plan and terminal superintendent goals have been reviewed and revised as necessary. Please see the Rehabilitation Signature page for all necessary signatures.
--- NOTE | 2024-06-11 16:48 | PN ---
Date of Progress Note: 06/10/2024 Subjective: The patient was seen this morning for followup. No new complaints or problems reported by him. Lying in bed, not in distress. Objective: Vital Signs: Reviewed. HEENT: Unremarkable. Lungs: Clear to auscultation. Heart: Sounds normal. Abdomen: Soft. Bowel sounds normal. No guarding, rigidity, tenderness, or distention. Extremities: No edema of left leg. Right leg has a knee immobilizer present. Laboratory Data: White count 8.4, hemoglobin 11.7, platelets 216. Sodium 138, potassium 4.1, chlori de 103, bicarb 33, BUN 34, creatinine 1.66, glucose 111. Serum albumin 2.3. Impression: 1.Orthostatic hypotension. 2.Fracture, right proximal tibia and fibula. 3.Type 2 diabetes mellitus. 4.Chronic diastolic heart failure. 5.Atrial fibrillation, chronic. 6.Chronic anticoagulation therapy. Plan: We will go ahead and continue amiodarone and Eliquis per order. We will continue this higher dose of midodrine, which was started just a couple of days ago and monitor patient's blood pressure f or orthostatic vital signs. We will continue physical therapy under guidance of Dr. Diaz and I will see him tomorrow for followup. EARLINE/MODL Voice ID: [id number] Report ID: [id number]
--- NOTE | 2024-06-11 18:57 | PN ---
Date of Progress Note: 06/11/2024 Subjective: Patient was seen this morning for followup. No new complaints or problems reported. Th e patient was sitting in wheelchair. His daughter was with him at bedside. Overall, he feels better . Vital signs reviewed. Nursing staff reports that patient still has some shaking feeling when he s tands up, so because of that, today they were not able to check his blood pressure while he was stand ing, but supine and sitting blood pressure readings were recorded and reviewed. In last 2 days, the patient reports that he is feeling better, feels little stronger and able to do physical therapy bett er than he did before and this is since we increased the dose of his midodrine which was about 2-3 da ys ago. Objective: Vital Signs: Reviewed. HEENT: Unremarkable. Lungs: Clear to auscultation. Heart: Sounds normal. Abdomen: Soft. Bowel sounds normal. No guarding, rigidity, tenderness, or distention. Extremities: No leg edema. Impression: 1.Orthostatic hypotension. 2.Fracture, right proximal tibia and fibula. 3.Type 2 diabetes mellitus. 4.Chronic diastolic heart failure. 5.Chronic anticoagulation therapy. Plan: We will continue current medication. Continue current Eliquis and amiodarone. The patient is on 300 mg gabapentin 2 times a day and I will go ahead and reduce dose to 100 mg 2 times a day and m y plan is to wean it off completely to see if this is contributing to his orthostatic hypotension or not. We will continue his midodrine 10 mg 3 times a day as prescribed and add fludrocortisone 0.1 mg daily. The patient is scheduled to be discharged from rehab floor on 06/15/2024, and he will be goi ng to [facility] for short-term stay and I have informed him and his daughter that upon dis charge from the facility, he should come see me at office in over 2 or 3 days with all the paperwork and medication list that he will receive from nursing facility. EARLINE/MODL Voice ID: [id number] Report ID: [id number]
[2024-06-11] MEDS: GABAPENTIN 100 MG CAP PO SCH (20:03)
--- NOTE | 2024-06-12 18:51 | PN ---
Date of Progress Note: 06/12/2024 Subjective: The patient was seen this morning for followup. No new complaints or problems reported by patient. He was lying in bed, not in distress. Objective: Vital Signs: Reviewed. HEENT: Unremarkable. Lungs: Clear to auscultation. Heart: Sounds normal. Abdomen: Soft. Bowel sounds normal. No guarding, rigidity, tenderness, distention. Extremities: No leg edema. Impression: 1.Fracture, right leg proximal tibia and fibula. 2.Chronic atrial fibrillation. 3.Chronic anticoagulation therapy. 4.Orthostatic hypotension. 5.Diabetes mellitus. Plan: We will go ahead and continue midodrine per order. Continue fludrocortisone as per order, whi ch was started just yesterday and I have reduced his gabapentin dose as of yesterday. We will see ho w his orthostatic vital sign changes are over the weekend. Details and plan of treatment discussed w ith the patient. EARLINE/MODL Voice ID: [id number] Report ID: [id number]
[2024-06-13 10:15] LABS: Sqamous Epithelial <5 /HPF (None Seen); Urine Bacteria None Seen /HPF (<20); Urine Culture Reflex Order NOT NEEDED; Urine Micro Reflex YN NO BILL MICROSCOPIC
--- NOTE | 2024-06-14 06:08 | PN ---
Date of Progress Note: 06/13/2024 Subjective: The patient was seen this morning for followup. Denies any new complaints. No chest pa in, shortness of breath. Had some constipation today, so he will get some laxative today for that. Objective: Vital Signs: Reviewed. HEENT: Unremarkable. Lungs: Clear to auscultation. Heart: Sounds normal. Abdomen: Soft. Bowel sounds normal. No guarding, rigidity, tenderness, distention. Extremities: No leg edema. Impression: 1.Orthostatic hypotension. 2.Constipation. 3.Right leg proximal tibia and fibula fractures. 4.Diabetes mellitus. Plan: We will go ahead and continue current medication. Continue current Eliquis and amiodarone. T he patient is on midodrine and fludrocortisone. We will continue that. We have him on lower dose of gabapentin, which is 100 mg 2 times a day. We will check orthostatic vital signs today and I will s ee him tomorrow for followup. EARLINE/MODL Voice ID: [id number] Report ID: [id number]
[2024-06-14 09:42] LABS: Specific Gravity 1.014 (1.005-1.030); Sqamous Epithelial None Seen /HPF (None Seen); Urine Bacteria None Seen /HPF (<20); Urine Bilirubin NEGATIVE (Negative); Urine Blood 2+ (Negative); Urine Clarity Clear (Clear); Urine Color Light-Yellow (Yellow); Urine Culture Reflex Order NOT NEEDED; Urine Glucose 4+ (Over) (Negative); Urine Ketones NEGATIVE (Negative); Urine Microscopic Reflex YN ORDER UMIC; Urine Nitrite NEGATIVE (Negative); Urine Protein TRACE (Negative); Urine RBC <5 /HPF (None Seen); Urine Urobilinogen Normal (Normal); Urine WBC <5 /HPF (<5)
--- NOTE | 2024-06-14 19:59 | PN ---
Date of Progress Note: 06/14/2024 Subjective: The patient was seen this morning for followup. No new complaints or problems reported. He was lying in bed, not in distress. Objective: Vital Signs: Reviewed. HEENT: Unremarkable. Lungs: Clear to auscultation. Heart: Sounds normal. Abdomen: Soft. Bowel sounds normal. No guarding, rigidity, tenderness, distention. Extremities: No leg edema. Impression: 1.Orthostatic hypotension. 2.Type 2 diabetes mellitus. 3.Chronic atrial fibrillation. 4.Chronic anticoagulation therapy. Plan: We will go ahead and continue current midodrine 10 mg 3 times a day and fludrocortisone 0.1 mg daily. We will go ahead and continue current amiodarone and Eliquis per order. The patient is sche duled to go to [facility] tomorrow and I will see him tomorrow karo gates for followup. EARLINE/MODL Voice ID: [id number] Report ID: [id number]
--- NOTE | 2024-06-14 23:30 | PN ---
Date of Progress Note: 06/14/2024 Time Of Service: 1:10 p.m. Subjective: Mr. Spencer is resting in bed. Family at bedside. Reports much improved pain below the ri ght knee where his fracture site is, and he is happy about being ready to be discharged home. Ricky mayes ollow up with his orthopedic surgeon and have some imaging studies done anterior, posterior, and late ral of the right knee prior to his discharge. Objective: Again, no significant fevers, chills, nausea, vomiting. Mild pain in the right lower ext remity as noted. No rash. No myalgias or other complaints. Physical Examination: Vital Signs: Blood pressure 119/63 with a pulse of 57 on lying, did drop to 83/52 and pulse 63 while sitting, and further down to 66/44 and pulse 72. He was possibly orthostatic and this was in the mo rning. Note that he is on multiple doses of midodrine, has Florinef, and still however has his amiod arone, which is now at night in addition to Lasix 40 mg daily. Review of Systems: As noted above, no fevers, chills. No myalgias, arthralgias. Pain as noted. No rash, headache, jag ght change. Physical Examination: In terms of rest of his examination, HEENT: He is normocephalic, atraumatic. Sclerae anicteric. Oropharynx moist. Neck: Supple. Chest: Clear. Extremities: No significant edema in the extremities. Neuromuscular: No focal deficits, just pain related to his fracture in the right lower extremity. Laboratory Studies: Blood sugars ranged from 129 to 171. X-ray/imaging: No new x-rays or imaging. Medications: Medications have been reviewed and are unchanged. Progress Made With Physical And Occupational Therapy: Today, with physical therapy, he did perform m ultiple onyqse-tb-bda transfers, maximum assistance. Rcy-oj-wvcot transfers, maximum assistance with a rolling walker. Again, significant drops in his blood pressure. With occupational therapy, parti al assistance for ivxgal-xt-cwe transfer. Supervision for edge of bed to wheelchair transfer. Did w ork with the Thera-Band to help with his upper body strength targeting triceps and biceps. Mr. Spencer is making slow progress overall, mostly limited by severe orthostatic hypotension with high risk of additional falls. He will go to halfway to continue his recovery, but in a safe envi ronment. Assessment: Mr. Spencer is an 88-year-old patient in the rehabilitation unit with a proximal right tibi a/fibula fracture that is traumatic. He has marked orthostatic hypotension, which is significantly l imiting his ability to stand and ambulate. He is best suited for mobilization via wheelchair and shaila ef standing transfers. He has dyslipidemia, hypothyroidism, diabetes mellitus, gastroesophageal refl ux, insomnia, intermittent constipation. Plan: 1.Continue physical and occupational therapy 3 hours a day, 5 of 7 days. 2.Continue with pressure support as multiple modalities are given. Check with Dr. Rice for potentia lly cutting back his Lasix and amiodarone. 3.He is being discharged to halfway in the morning and will follow up with Dr. Rice and Dr. Cho, his orthopedic surgeon, as scheduled. FAROOQ/KOKO Voice ID: [id number] Report ID: [id number]
[2024-06-15 08:27] VITALS: BP 102/58
[2024-06-15 09:42] VITALS: TEMP 97.2
--- NOTE | 2024-06-15 23:21 | DS ---
Date of Discharge: 06/15/2024 Disposition: Discharged to go to [facility]. Physical Examination: HEENT: Unremarkable. Lungs: Clear to auscultation. Heart: Sounds normal. Abdomen: Soft. Bowel sounds normal. No guarding, rigidity, tenderness, distention. Extremities: No leg edema. Discharge Medications And Instructions: 1.Diet: 2000 calorie ADA diet. 2.Fall precautions. 3.Continue to use brace over right lower leg. 4.Tylenol 500 mg 4 times a day as needed. 5.Amiodarone 200 mg daily. 6.Eliquis 2.5 mg 2 times a day. 7.Dulcolax rectal suppository daily as needed. 8.Vitamin B12 1 mg daily. 9.Farxiga 10 mg daily. 10.Senokot-S 2 tablets daily. 11.Avodart 0.5 mg daily. 12.Ensure 237 mL 2 times a day. 13.Ferrous sulfate 325 mg daily. 14.Fludrocortisone 0.1 mg daily. 15.Furosemide 40 mg daily. 16.Gabapentin 100 mg daily for 1 week, then stop. 17.Insulin glargine 20 units subcutaneous injection daily in morning. 18.Levothyroxine 50 mcg daily. 19.Lidocaine patch topically to right leg daily. 20.Milk of magnesia 30 mL p.o. daily as needed for constipation. 21.Melatonin 3 mg daily at bedtime. 22.Midodrine 10 mg 3 times a day to be taken at 6 a.m., 11 a.m., and 4 p.m. 23.Pantoprazole 40 mg daily. 24.Rosuvastatin 10 mg daily at bedtime. 25.Ozempic 1 mg subcutaneous injection once a week. 26.Tramadol 50 mg 3 times a day as needed for pain. Laboratory Data: On 06/03/2024, white count 9.4, hemoglobin 11.8, platelets 173, and on 06/10/2024, white count 8.4, hemoglobin 11.7, and platelets 269. For chemistry on 06/03/2024, sodium 138, potass ium 3.7, chloride 102, bicarb 31, BUN 49, creatinine 1.74, glucose 112, and on 06/10/2024, sodium 138 , potassium 4.1, chloride 103, bicarb 33, BUN 34, creatinine 1.66, glucose 111, albumin 2.3. Urinaly sis from yesterday was negative except 2+ blood. Discharge Diagnoses: 1.Fracture, right proximal tibia and fibula, with mild displacement. 2.Orthostatic hypotension. 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 4.Type 2 diabetes mellitus with chronic kidney disease. 5.Chronic kidney disease stage IIIB. 6.Hypertension. 7.Hyperlipidemia. 8.Coronary artery disease. 9.Paroxysmal atrial fibrillation. 10.Chronic anticoagulation therapy. 11.Hypothyroidism. 12.Gastroesophageal reflux disease. 13.Benign prostatic hypertrophy. This is an 88-year-old pleasant male patient, who was admitted to the hospital after he fell down at home and further evaluation revealed presence of right proximal tibia and fibula fracture. The patie nt was initially admitted to medical floor. Orthopedic consultation was requested from Dr. Cho and conservative management was advised by him. Right leg splint was placed and physical therapy was started. The patient was brought to inpatient rehab where his therapy was guided by Dr. Diaz. The patient required pain medication for pain control. His medical problems remained stable except b iggest challenge we had was orthostatic hypotension. At home, he was taking midodrine 5 mg 3 times a day and during this stay on rehab floor, we had to go up on dose of midodrine to 10 mg 3 times a day and that was not enough to control his orthostatic hypotension, so we increased the dose to 10 mg 3 times a day and lowered his gabapentin from 300 twice a day to 100 mg twice a day and subsequently we also added fludrocortisone. The patient was advised to exercise his hands and feet prior to getting out of bed. Yesterday, he had some distended bladder with urinary retention, but he was able to voi d on his own without any difficulty. He takes Avodart for his prostate problem and this was continue d. Overall, the patient's condition has improved and today he was discharged to go to [facility] in stable condition. I have informed him and his daughter that once he gets discharged from this [facility], to return back home. He should come and see me melquiades nur 2 to 3 days for followup visit. Total time spent today was 45 minutes. EARLINE/MODL Voice ID: [id number] Report ID: [id number]
== END 2024-06-15 11:30 | DRG 560 ==
LOC: 5TH 10:25
PROVIDERS: ADMIT Internal Medicine; ATTEND Psychiatry & Neurology Neurology with Special Qualifications in Child Neurology
DX: S82.101D Unspecified fracture of upper end of right tibia, subsequent encounter for closed fracture with routine healing (principal); I13.0 Hypertensive heart and chronic kidney disease with heart failure and stage 1 through stage 4 chronic kidney disease, or unspecified chronic kidney disease; I50.32 Chronic diastolic (congestive) heart failure; S82.491D Other fracture of shaft of right fibula, subsequent encounter for closed fracture with routine healing; E03.9 Hypothyroidism, unspecified; E78.5 Hyperlipidemia, unspecified; I48.0 Paroxysmal atrial fibrillation; N40.0 Benign prostatic hyperplasia without lower urinary tract symptoms; E11.22 Type 2 diabetes mellitus with diabetic chronic kidney disease; K59.00 Constipation, unspecified; I95.1 Orthostatic hypotension; N18.32 Chronic kidney disease, stage 3b; K21.9 Gastro-esophageal reflux disease without esophagitis; D63.1 Anemia in chronic kidney disease; G47.00 Insomnia, unspecified; F40.248 Other situational type phobia; Z79.01 Long term (current) use of anticoagulants
CPT/HCPCS: 36415; 71046; 80048; 81001; 81015; 82040; 82947; 83735; 84134; 85025; 87086; 87088; 94010; 97110; 97116; 97163; 97165; 97530; 97542; J2001; J2270; J3420; J7030

== ENCOUNTER 2024-08-26 11:20 | Emergency (ER) | payer OTHER ==
[2024-08-26] MEDS ORDERED: NA CHLORIDE 0.9% 500 ML ONE (14:11)
[2024-08-26 14:14] LABS: Absolute Eosinophils 0.1 K/uL (0-0.5); Absolute Lymphocytes (CBC) 1.1 K/uL (0.7-4.9); Absolute Monocytes 0.5 K/uL (0.1-1.3); Basophils % 0.6 % (0-1.3); Eosinophils % 1.5 % (0-4.4); Hematocrit 46.9 % (39.6-49.0); Hemoglobin 15.3 g/dL (13.6-17.9); Lymphocytes % 14.5 % (15.3-44.8); MCH 31.8 pg (27.0-35.0); MCHC 32.5 g/dL (32.0-36.0); MCV 97.6 fL (80-100); Monocytes % 6.8 % (3.3-12.3); Neutrophils % 76.6 % (41.7-73.7); Platelets 189 thou/uL (152-406); Red Cell Distribution Width 14.6 % (12.1-15.2)
[2024-08-26 14:30] LABS: Albumin 3.2 g/dL (3.4-5.0); Albumin/Globulin Ratio 0.8 (1.1-1.8); Anion Gap 6.9 mEq/L (5.0-15.0); Bilirubin Total 0.6 mg/dL (0.2-1.0); Globulin 4.2 g/dL (2.3-3.5); Potassium 3.9 mEq/L (3.5-5.1); Protein, Total 7.4 g/dL (6.4-8.2)
[2024-08-26 14:37] LABS: Sqamous Epithelial None Seen /HPF (None Seen); Urine Bacteria None Seen /HPF (<20); Urine Bilirubin NEGATIVE (Negative); Urine Blood Trace (Negative); Urine Clarity Clear (Clear); Urine Color Colorless (Yellow); Urine Culture Reflex Order NOT NEEDED; Urine Glucose 4+ (Over) (Negative); Urine Ketones NEGATIVE (Negative); Urine Microscopic Reflex YN ORDER UMIC; Urine Nitrite NEGATIVE (Negative); Urine Protein TRACE (Negative); Urine RBC <5 /HPF (None Seen); Urine Urobilinogen Normal (Normal); Urine WBC <5 /HPF (<5); Urine pH 5.5 (5.0-7.0)
--- NOTE | 2024-08-26 16:13 | RAD REPORT ---
EXAMINATION: CT Abdomen Pelvis W Contrast CLINICAL INDICATION: Male, 89 years old. back pain;Constipation TECHNIQUE: CT abdomen and pelvis was performed, after the administration of IV contrast, as per [facility] protocol. Axial, sagittal and coronal reconstructions were obtained. One or more of the following dose reduction techniques were used: Automated exposure control, adjustment of the mA and k V according to patient size, and iterative reconstruction. Unless otherwise specified, incidental findings do not require dedicated imaging follow-up. COMPARISON: No prior exam. FINDINGS: LOWER CHEST: Trace layering loculated fluid along the left cardiophrenic angle with adjacent subsegme ntal atelectasis, and some pleural mineralization. Mild elevation of the left hemidiaphragm. LIVER: Normal in size and contour. No focal lesion. Capsular calcific posterior right lobe 13 among f ocus, suggesting a granuloma, benign in appearance BILIARY SYSTEM: No suspicious abnormalities. SPLEEN: Normal size. No focal lesion. PANCREAS: No mass, ductal dilation, or leighann-pancreatic fluid. ADRENALS: Normal; no mass. KIDNEYS: Normal size and contour. No hydronephrosis. URINARY BLADDER: Unremarkable. GASTROINTESTINAL TRACT: No evidence of free air, significant intra-abdominal free fluid, bowel obstru ction or abscess. Moderate stool burden throughout the colon. APPENDIX: Normal appendix. LYMPH NODES: No lymphadenopathy. MUSCULOSKELETAL: Healing/healed lower left nondisplaced rib fractures. No acute or suspicious osseous abnormality. ADDITIONAL FINDINGS: Bilateral hernias containing fat. Calcified 2.7 cm lesion adjacent to the tenriism itia of the descending colon, suggesting sequelae of prior epiploic appendicitis. IMPRESSION: No acute or concerning abnormalities seen in the abdomen or pelvis. Small loculated left pleural effusion, with some visceral and parietal pleural mineralization, sugges ting swelling of remote infection. Other incidental findings as above.
--- NOTE | 2024-08-26 16:34 | ER ---
Nurse's Notes [facility] Name: Krishna Spencer Age: 89 yrs Sex: Male : 1935 Arrival Date: 08/26/2024 Time: 11:20 Bed 9 Private MD: Diagnosis: Low back pain;Constipation Presentation: 08/26 11:29 Chief complaint: Patient states: BACK PAIN X 2 WEEKS. CONSTIPATION X 1 WEEK. TRIED db MIRALAX AND LAXATIVE AND STRAINING IS INCREASING BACK PAIN. STATES HAS HX OF KIDNEY INJURY. Coronavirus screen: Client denies travel out of the [place] in the last 14 days. At this time, the client does not indicate any symptoms associated with coronavirus-19. Ebola Screen: Patient negative for fever greater than or equal to 101.5 degrees Fahrenheit, and additional compatible Ebola Virus Disease symptoms Patient denies exposure to infectious person. Patient denies travel to an Ebola-affected area in the 21 days before illness onset. No symptoms or risks identified at this time. Initial Sepsis Screen: Does the patient meet any 2 criteria? No. Patient's initial sepsis screen is negative. Does the patient have a suspected source of infection? No. Patient's initial sepsis screen is negative. Risk Assessment: Do you want to hurt yourself or someone else? Patient reports no desire to harm self or others. Onset of symptoms was August 12, 2024. 11:29 Method Of Arrival: Wheelchair db 11:29 Acuity: MARIA ESTHER 3 db Triage Assessment: 11:32 Pain: Complains of pain in back. db 11:33 General: Appears in no apparent distress. comfortable, Behavior is calm, cooperative. db Neuro: Level of Consciousness is awake, alert, obeys commands, Oriented to person, place, time, situation. Respiratory: Airway is patent Respiratory effort is even, unlabored, Respiratory pattern is regular, symmetrical. Musculoskeletal: Circulation, motion, and sensation intact. Capillary refill < 3 seconds, Range of motion: limited in back. Historical: - Allergies: 11:32 Lipitor; db - Home Meds: 11:33 Eliquis 2.5 mg Oral tablet 1 tab 2 times per day [Active]; db 15:16 amiodarone 200 mg Oral tablet 1 tab daily for Prevention of Recurrent Atrial tl4 Fibrillation [Active]; Crestor oral 10mg 1 tab nightly [Active]; dutasteride 0.5 mg Oral capsule 1 cap nightly [Active]; Farxiga 10 mg Oral tablet 1 tab daily [Active]; ferrous sulfate 325 mg (65 mg iron) Oral tablet 1 tab nightly [Active]; Lasix 40 mg Oral tablet 1 tab daily [Active]; levothyroxine 50 mcg tablet 1 tab daily for Hypothyroidism [Active]; midodrine 10 mg oral tablet 1 tab 3 times per day [Active]; Ozempic 1 mg/dose (4 mg/3 mL) subcutaneous Pen Injector 1 mg every week for Type 2 Diabetes Mellitus [Active]; Protonix 40 mg Oral tablet 1 tab once [Active]; Tresiba FlexTouch U-100 100 unit/mL (3 mL) subcutaneous Insulin Pen 25 units 2 times per day [Active]; Vitamin B-12 1 Oral tablet 1 tab daily [Active]; fludrocortisone 0.1 mg oral tablet 1 tab daily [Active]; potassium chloride 20 mEq Oral tablet, extended release 1 tab daily [Active]; - PMHx: 11:32 LOW BLOOD PRESSURE; Diabetes mellitus; Kidney disease; db 11:33 Atrial fibrillation; db 11:34 Congestive heart failure; db - Immunization history:: Adult Immunizations unknown. - Infectious Disease History:: Denies. - Social history:: Smoking status: Patient denies any tobacco usage or history of. Screenin:42 [facility] ED Fall Risk Assessment (Adult) History of falling in the last 3 months, db including since admission No falls in past 3 months (0 pts) Confusion or Disorientation No (0 pts) Intoxicated or Sedated No (0 pts) Impaired Gait Yes (1 pt) Mobility Assist Device Used Yes (1 pt) Altered Elimination No (0 pt) Score/Fall Risk Level 0 - 2 = Low Risk Oriented to surroundings, Maintained a safe environment, Educated pt \T\ family on fall prevention, incl call for assistance when getting out of bed, Assessed \T\ reinforced patient's understanding of fall precautions. Abuse screen: Denies threats or abuse. Denies injuries from another. Nutritional screening: No deficits noted. Tuberculosis screening: No symptoms or risk factors identified. Assessment: 12:40 General: Appears in no apparent distress. Behavior is cooperative. Pain: Complains of db pain in back. Neuro: Level of Consciousness is awake, alert, obeys commands, Oriented to person, place, time, situation, Civil Project Engineer are equal bilaterally Speech is normal, Facial symmetry appears normal. Cardiovascular: Denies chest pain, diaphoresis, fatigue, lightheadedness, nausea, palpitations, shortness of breath, syncope, vomiting, Capillary refill < 3 seconds Patient's skin is warm and dry. Respiratory: Airway is patent Respiratory effort is even, unlabored, Respiratory pattern is regular, symmetrical, Breath sounds are clear bilaterally. Denies shortness of breath. GI: Reports constipation, Patient currently denies abdominal pain, bloody stool, nausea, vomiting. : No signs and/or symptoms were reported regarding the genitourinary system. EENT: No signs and/or symptoms were reported regarding the EENT system. Derm: No signs and/or symptoms reported regarding the dermatologic system. Musculoskeletal: Reports pain in back. 16:02 Reassessment: No changes from previously documented assessment. Patient and/or family tl4 updated on plan of care and expected duration. Pain level reassessed. Patient is alert, oriented x 3, equal unlabored respirations, skin warm/dry/pink. Pt denies any needs at this time. Family at bedside. Call [place] at bedside. Will continue to monitor Patient denies pain at this time. 17:05 Reassessment: Delay to discharge due to waiting for MD for discharge instructions. tl4 Vital Signs: 11:29 BP 156 / 71; Pulse 61; Resp 18; Temp 97.7; Pulse Ox 99% ; Weight 78.02 kg; Height 6 ft. db 2 in. ; Pain 4/10; 12:42 BP 170 / 70; Pulse 67; Resp 20; Pulse Ox 100% on R/A; Pain 8/10; db 13:30 BP 163 / 81; Pulse 61; Resp 18; Pulse Ox 99% on R/A; tl4 14:30 BP 163 / 72; Pulse 64; Resp 16; Pulse Ox 96% on R/A; tl4 16:02 BP 155 / 73; Pulse 63; Resp 18; Pulse Ox 97% on R/A; tl4 17:04 BP 150 / 66; Pulse 60; Resp 16; Temp 97.5(O); Pulse Ox 98% on R/A; Pain 6/10; tl4 11:29 Body Mass Index 22.08 (78.02 kg, 187.96 cm) db 11:29 Pain Scale: Adult db 12:42 Pain Scale: Adult db 17:04 Pain Scale: Adult tl4 ED Course: 11:22 Patient arrived in ED. mr 11:30 Anita Sapp MD is Attending Physician. sd2 11:32 Triage completed. db 11:34 Arm band placed on right wrist. Patient placed in waiting room. db 12:39 Na Cervantes, RN is Primary Nurse. db 12:43 Patient has correct armband on for positive identification. Placed in gown. Bed in low db position. Call light in reach. Side rails up X2. Adult w/ patient. Provided Education on: ED PROCESS, CALL [place]. Client placed on continuous cardiac and pulse oximetry monitoring. NIBP monitoring applied. Door closed. Noise minimized. Lights dimmed. Moved to private room. Warm blanket given. 12:44 No provider procedures requiring assistance completed. db 13:33 Primary Nurse role handed off by Na Cervantes, LUCY tl4 13:33 Denzel Mendoza, RN is Primary Nurse. tl4 13:39 Radiology exam delayed due to IV insertion attempt and/or patient not having nj appropriate IV at this time. 13:39 Radiology exam delayed due to lab results not completed at this time. (BUN/Creatinine). nj 14:05 Initial lab(s) drawn, by me, sent to lab. Inserted saline lock: 22 gauge in right tl4 forearm, using aseptic technique. Blood collected. Flushed with 10 mL NS. 14:05 EKG done, by ED staff, reviewed by Anita Sapp MD. tl4 14:06 Troponin High Sensitivity Sent. tl4 14:06 Lipase Sent. tl4 14:06 CMP Sent. tl4 14:06 CBC with Diff Sent. tl4 14:10 Radiology exam delayed due to lab results not completed at this time. (BUN/Creatinine). nj 14:24 Urine collected: clean catch specimen, clear. tl4 15:01 CT Abd/Pelvis - IV Contrast Only In Process Unspecified. EDMS 17:05 IV discontinued, intact, bleeding controlled, No redness/swelling at site. Pressure tl4 dressing applied. Administered Medications: 14:24 Drug: NS 0.9% IV 500 ml 500 ml IV at 1 bolus once; to be given as a bolus over 30 tl4 minutes Volume: 500 ml; Route: IV; Rate: 1 bolus; Site: right forearm; Delivery: Primary tubing; 15:00 Follow up: Response: No adverse reaction; IV Status: Completed infusion; IV Intake: tl4 500ml 17:04 Drug: Lidoderm Topical Patch 5 % (700 mg/patch) 1 patches Topical once; leave on for 12 tl4 hours; cover most painful area; may cut into smaller pieces {Note: applied to left lower back.} Route: Topical; Site: affected area; 17:14 Follow up: Response: No adverse reaction tl4 Medication: 12:42 VIS not applicable for this client. db Intake: 15:00 IV: 500ml; Total: 500ml. tl4 Outcome: 16:33 Discharge ordered by . sd2 17:14 Discharged to home via wheelchair, with family, tl4 17:14 Condition: stable 17:14 Discharge instructions given to patient, family, Instructed on discharge instructions, follow up and referral plans. medication usage, Demonstrated understanding of instructions, follow-up care, medications, Prescriptions given X 2, 17:14 Patient left the ED. tl4 Signatures: Dispatcher [employer] EDMS Jennifer Gallego, Reg Reg mr Robbins, Anita Powell MD MD sd2 Na Cervantes RN RN db Denzel Mendoza RN RN tl4 Corrections: (The following items were deleted from the chart) 11:33 11:32 PMHx: Angina pectoris; db db 11:34 11:32 Pain: Complains of pain in back db db 11:35 11:32 Immunization history: Adult Immunizations unknown, db db 14:26 14:06 BP 163 / 81; Pulse 61bpm; Resp 18bpm; Pulse Ox 99% RA; tl4 tl4 14:27 14:00 BP 149 / 91; Pulse 77bpm; Resp 15bpm; Pulse Ox 100% RA; tl4 tl4
--- NOTE | 2024-08-26 16:34 | EDPHYS ---
Physician Documentation [facility] Name: Krishna Spencer Age: 89 yrs Sex: Male : 1935 Arrival Date: 08/26/2024 Time: 11:20 Bed 9 Private MD: ED Physician Anita Sapp HPI: 08/26 12:45 This 89 yrs old Male presents to ER via Wheelchair with complaints of Back Pain, sd2 Constipation. 12:45 89 yo M presents with CC of left sided back pain for the past few weeks and sd2 constipation for the last 4-5 days unrelieved with laxatives, suppositories and enemas at home. Reports no trauma or recent injury. Taking Tramadol at home with some improvement. Denies abdominal pain, n/v or fever.. Historical: - Allergies: 11:32 Lipitor; db - Home Meds: 11:33 Eliquis 2.5 mg Oral tablet 1 tab 2 times per day [Active]; db 15:16 amiodarone 200 mg Oral tablet 1 tab daily for Prevention of Recurrent Atrial tl4 Fibrillation [Active]; Crestor oral 10mg 1 tab nightly [Active]; dutasteride 0.5 mg Oral capsule 1 cap nightly [Active]; Farxiga 10 mg Oral tablet 1 tab daily [Active]; ferrous sulfate 325 mg (65 mg iron) Oral tablet 1 tab nightly [Active]; Lasix 40 mg Oral tablet 1 tab daily [Active]; levothyroxine 50 mcg tablet 1 tab daily for Hypothyroidism [Active]; midodrine 10 mg oral tablet 1 tab 3 times per day [Active]; Ozempic 1 mg/dose (4 mg/3 mL) subcutaneous Pen Injector 1 mg every week for Type 2 Diabetes Mellitus [Active]; Protonix 40 mg Oral tablet 1 tab once [Active]; Tresiba FlexTouch U-100 100 unit/mL (3 mL) subcutaneous Insulin Pen 25 units 2 times per day [Active]; Vitamin B-12 1 Oral tablet 1 tab daily [Active]; fludrocortisone 0.1 mg oral tablet 1 tab daily [Active]; potassium chloride 20 mEq Oral tablet, extended release 1 tab daily [Active]; - PMHx: 11:32 LOW BLOOD PRESSURE; Diabetes mellitus; Kidney disease; db 11:33 Atrial fibrillation; db 11:34 Congestive heart failure; db - Immunization history:: Adult Immunizations unknown. - Infectious Disease History:: Denies. - Social history:: Smoking status: Patient denies any tobacco usage or history of. ROS: 12:45 Constitutional: Negative for fever, chills, and weight loss, Eyes: Negative for injury, sd2 pain, redness, and discharge, Cardiovascular: Negative for chest pain, palpitations, and edema, Respiratory: Negative for shortness of breath, cough, wheezing. 12:45 : Negative for dysuria, frequency or hematuria. 12:45 MS/Extremity: Negative for injury and deformity, Skin: Negative for injury, rash, and discoloration, 12:45 Abdomen/GI: Positive for constipation, Negative for abdominal pain, nausea and vomiting, diarrhea, 12:45 Back: Positive for pain at rest, pain with movement, Negative for injury or acute deformity, 12:45 Neuro: Negative for headache, numbness and tingling. sd2 Exam: 12:45 Constitutional: This is a well developed, well nourished patient who is awake, alert, sd2 and in no acute distress. Head/Face: Normocephalic, atraumatic. Eyes: EOMI, normal conjunctiva bilaterally Chest/axilla: Normal chest wall appearance and motion. Nontender with no deformity. Cardiovascular: Regular rate and rhythm with a normal S1 and S2. No gallops, murmurs, or rubs. 2+ distal pulses. Respiratory: Lungs have equal breath sounds bilaterally, clear to auscultation and percussion. No rales, rhonchi or wheezes noted. No increased work of breathing, no retractions or nasal flaring. Abdomen/GI: Soft, non-tender, with normal bowel sounds. No guarding or rebound. No evidence of tenderness throughout. Back: No spinal tenderness. No costovertebral tenderness. Full range of motion. Skin: Warm, dry with normal turgor. Normal color with no rashes, no lesions, and no evidence of cellulitis. MS/ Extremity: Pulses equal, no cyanosis. Neurovascular intact. Full, normal range of motion. Neuro: Awake and alert, GCS 15, oriented to person, place, time, and situation. Cranial nerves II-XII grossly intact. Motor strength 5/5 in all extremities. Sensory grossly intact. SOLIS equally 16:35 ECG was reviewed by the Attending Physician. Baseline artifact, A-fib, RBBB, rate 62, sd2 no STEMI criteria Vital Signs: 11:29 BP 156 / 71; Pulse 61; Resp 18; Temp 97.7; Pulse Ox 99% ; Weight 78.02 kg; Height 6 ft. db 2 in. ; Pain 4/10; 12:42 BP 170 / 70; Pulse 67; Resp 20; Pulse Ox 100% on R/A; Pain 8/10; db 13:30 BP 163 / 81; Pulse 61; Resp 18; Pulse Ox 99% on R/A; tl4 14:30 BP 163 / 72; Pulse 64; Resp 16; Pulse Ox 96% on R/A; tl4 16:02 BP 155 / 73; Pulse 63; Resp 18; Pulse Ox 97% on R/A; tl4 17:04 BP 150 / 66; Pulse 60; Resp 16; Temp 97.5(O); Pulse Ox 98% on R/A; Pain 6/10; tl4 11:29 Body Mass Index 22.08 (78.02 kg, 187.96 cm) db 11:29 Pain Scale: Adult db 12:42 Pain Scale: Adult db 17:04 Pain Scale: Adult tl4 MDM: 12:29 Medical Screening Exam initiated sd2 12:45 Differential diagnosis: MSK, herniated disc, constipation, SBO, UTI, kidney stone among sd2 others. Data reviewed: vital signs, nurses notes. Historians other than the Patient: Daughter/Son: Daughter at BS gives further hx. Care significantly affected by the following chronic conditions: Diabetes, Congestive Heart Failure, A-fib. 16:29 Counseling: I had a detailed discussion with the patient and/or guardian regarding the sd2 historical points, exam findings, and any diagnostic results supporting the discharge/admit diagnosis, lab results, radiology results, the need for outpatient follow up, to return to the emergency department if symptoms worsen or persist or if there are any questions or concerns that arise at home. ED course: Labs and imaging reviewed. Labs reassuring. Imaging shows small loculated effusion to L lung base. However, patient reports significant surgery to "scrape" that lung in that same area and that there is scar tissue to that area. Therefore, this is likely post-surgical in nature. Pt with no infectious symptoms currently. Pain to lower back area is exacerbated with movement and currently controlled with his Tramadol and Tylenol at home for the most part. Will place lidocaine patch and advised low dose muscle relaxer at home only for severe episodes and need for follow up with PCP. Pt also reports he has been having bowel movements but they are "runny" and not formed. No constipation or obstruction seen on CT at this time. Verbalizes understanding of dc plan and strict return precautions. . 08/26 12:14 Order name: CBC with Diff; Complete Time: 14:41 sd2 08/26 12:14 Order name: CMP; Complete Time: 14:41 sd2 08/26 12:14 Order name: Urinalysis w/ reflexes; Complete Time: 14:41 sd2 08/26 12:30 Order name: Lipase; Complete Time: 14:41 sd2 08/26 12:30 Order name: Troponin High Sensitivity; Complete Time: 14:41 sd2 08/26 12:30 Order name: CT Abd/Pelvis - IV Contrast Only; Complete Time: 16:17 sd2 08/26 12:30 Order name: EKG - Nurse/Tech; Complete Time: 14:06 sd2 Administered Medications: 14:24 Drug: NS 0.9% IV 500 ml 500 ml IV at 1 bolus once; to be given as a bolus over 30 tl4 minutes Volume: 500 ml; Route: IV; Rate: 1 bolus; Site: right forearm; Delivery: Primary tubing; 15:00 Follow up: Response: No adverse reaction; IV Status: Completed infusion; IV Intake: tl4 500ml 17:04 Drug: Lidoderm Topical Patch 5 % (700 mg/patch) 1 patches Topical once; leave on for 12 tl4 hours; cover most painful area; may cut into smaller pieces {Note: applied to left lower back.} Route: Topical; Site: affected area; 17:14 Follow up: Response: No adverse reaction tl4 Disposition Summary: 08/26/24 16:33 Discharge Ordered Problem: new sd2 Symptoms: have improved sd2 Condition: Stable sd2 Diagnosis - Low back pain sd2 - Constipation sd2 Followup: sd2 - With: Private Physician - When: 2 - 3 days - Reason: Recheck today's complaints, Continuance of care, Re-evaluation by your physician Discharge Instructions: - Discharge Summary Sheet sd2 - Acute Back Pain, Adult sd2 - Constipation, Adult sd2 Forms: - Medication Reconciliation Form sd2 - Antibiotic Education sd2 - Prescription Opioid Use sd2 - Patient Portal Instructions sd2 - Leadership Thank You Letter sd2 Prescriptions: - Lidoderm 5 % Topical adhesive patch, medicated - apply 1 patch TOPICAL route daily leave on most painful area for up to 12 hrs; sd2 10 patch; Refills: 0, Product Selection Permitted - Cyclobenzaprine 5 mg Oral tablet - take 1 tablet ORAL route every 8 hours As needed; 15 tablet; Refills: 0, sd2 Product Selection Permitted Signatures: Dispatcher [employer] EDWY Anita Sapp MD MD sd2 Na Cervantes, RN RN db Denzel Mendoza RN RN tl4 Corrections: (The following items were deleted from the chart) 11:33 11:32 PMHx: Angina pectoris; db db 11:35 11:32 Immunization history: Adult Immunizations unknown, db db 12:55 12:14 Abdomen 1 View (KUB)+RAD.RAD.BRZ ordered. EDMS EDMS 16:34 16:29 ED course: Labs and imaging reviewed. Labs reassuring. Imaging shows small sd2 loculated effusion to L lung base. However, patient reports significant surgery to "scrape" that lung in that same area and that there is scar tissue to that area. Therefore, this is likely post-surgical in nature. Pt with no infectious symptoms currently. Pain to lower back area is exacerbated with movement and currently controlled with his Tramadol and Tylenol at home for the most part. Will place lidocaine patch and advised low dose muscle relaxer at home only for severe episodes and need for follow up with PCP. Verbalizes understanding of dc plan and strict return precautions. . sd2
[2024-08-26] MEDS ORDERED: LIDOCAINE 4% PATCH ONE (16:56)
[2024-08-26 22:22] VITALS: BP 150/66; TEMP 97.5; O2SAT 98
--- NOTE | 2024-08-27 14:14 | EKG ---
Test Date: 2024-08-26 Test Time: 13:53:15 Rotary Helper: TL MEASUREMENT RESULTS: Intervals: Rate: 62 [place]: QRSD: 158 QT: 568 QTc: 576 [place]: P: [place]: QRS: 147 T: 15 INTERPRETIVE STATEMENTS: Atrial fibrillation Right bundle branch block Left posterior fascicular block Bifascicular block Abnormal ECG Compared to ECG 05/30/2024 07:24:50 Left posterior fascicular block now present Bifascicular block now present Sinus rhythm no longer present First degree AV block no longer present Electronically Signed On 08-27-24 14:12:14 CDT by Jet Davis
== END 2024-08-26 17:14 | disposition home or self-care (01) ==
LOC: ER 11:20
DX: M54.50 Low back pain, unspecified (principal); K59.00 Constipation, unspecified; N28.9 Disorder of kidney and ureter, unspecified; E11.9 Type 2 diabetes mellitus without complications; I48.91 Unspecified atrial fibrillation; Z79.01 Long term (current) use of anticoagulants; Z79.4 Long term (current) use of insulin
CPT/HCPCS: 93005; 85025; 81001; 36415; 84484; 83690; 80053; 74177; 96360; 99285; Q9967; J2001; J7040

== ENCOUNTER 2025-01-12 19:02 | Inpatient (IN) | payer OTHER ==
[2025-01-12 19:49] LABS: Absolute Basophils 0.1 K/uL (0-0.5); Absolute Lymphocytes (CBC) 0.6 K/uL (0.7-4.9); Absolute Neutrophil 23.1 K/uL (1.8-8.0); Basophils % 0.2 % (0-1.3); Hematocrit 47.8 % (39.6-49.0); Hemoglobin 15.5 g/dL (13.6-17.9); Lymphocytes % 2.2 % (15.3-44.8); MCH 32.2 pg (27.0-35.0); MCHC 32.4 g/dL (32.0-36.0); MCV 99.2 fL (80-100); MPV 9.3 fL (7.6-11.3); Monocytes % 3.9 % (3.3-12.3); Neutrophils % 93.7 % (41.7-73.7); Platelets 269 thou/uL (152-406); RBC Red Blood Cell Count 4.81 M/uL (4.33-5.43); Red Cell Distribution Width 14.1 % (12.1-15.2)
[2025-01-12] MEDS ORDERED: ONDANSETRON 4 MG/2 ML VIAL ONE (19:49)
[2025-01-12 20:05] LABS: Albumin 3.1 g/dL (3.4-5.0); Albumin/Globulin Ratio 0.7 (1.1-1.8); Anion Gap 12.7 mEq/L (5.0-15.0); Bilirubin Total 1.1 mg/dL (0.2-1.0); Globulin 4.3 g/dL (2.3-3.5); Potassium 4.7 mEq/L (3.5-5.1); Protein, Total 7.4 g/dL (6.4-8.2)
--- NOTE | 2025-01-12 21:16 | RAD REPORT ---
EXAMINATION: ONE VIEW CHEST XR CLINICAL INDICATION: Male, 89 years old.,SOB TECHNIQUE: Frontal chest projection is submitted. Examination is limited by patient positioning and t echnique. COMPARISON: 06/02/2024 FINDINGS: Stable patchy left basilar airspace opacity with volume loss and suggestion of small effusion. Calcif ic pleural plaque. Right sixth rib deformity, stable, could reflect chronic or healing fracture. No pneumothorax or right effusion. The heart is normal in size. Mediastinal contours are unchanged. IMPRESSION: Stable left basilar patchy airspace opacities component of effusion, suggesting atelectasis.
[2025-01-12 21:37] LABS: Band Neutrophils 23 % (0-1); Blood Morphology Comment NOT SEEN (NOT SEEN); Differential Total Cells Count 100; Lymphocytes 1 % (15-42); Monocytes 6 % (0-10); Platelet Estimate ADEQ; Segmented Neutrophils 70 % (40-80)
--- NOTE | 2025-01-12 22:16 | RAD REPORT ---
EXAMINATION: CT Abdomen Pelvis Wo Contrast CLINICAL INDICATION: Male, 89 years old. ABD PAIN TECHNIQUE: CT abdomen and pelvis was performed, without IV contrast, as per department protocol. Axia l, sagittal and coronal reconstructions were obtained. One or more of the following dose reduction techniques were used: Automated exposure control, adjustment of the mA and kV according to the patien t size, and iterative reconstruction. Unless otherwise specified, incidental findings do not require dedicated imaging follow-up. COMPARISON: 08/26/2024 FINDINGS: The lack of intravenous contrast limits the sensitivity of this exam for evaluation of solid visceral organs, vascular structures, and retroperitoneum. LOWER CHEST: Stable small possibly loculated component of left basal effusion and adjacent subsegment al atelectasis. Calcified pleural plaque again seen.. LIVER: Normal in size and contour. No focal lesion. Focus of calcification along the subcapsular post erior right liver lobe. BILIARY SYSTEM: Layering mildly hyperdense sludge. No radiopaque calculi. No pericholecystic fluid. C ommon bile duct is not dilated SPLEEN: Normal size. No focal lesion. PANCREAS: No mass, ductal dilation, or leighann-pancreatic fluid. ADRENALS: Normal; no mass. KIDNEYS AND URETERS: Normal size and contour. No hydronephrosis. URINARY BLADDER: Normal contour. GASTROINTESTINAL TRACT: Long segment of wall thickening involving the mid to distal sigmoid to the co lorectal junction, with surrounding fat stranding and vascular engorgement. No evidence of bowel obstruction, significant free fluid, free air or abscess. APPENDIX: Normal appendix. LYMPH NODES: No lymphadenopathy. MUSCULOSKELETAL: No acute or suspicious osseous abnormality. ADDITIONAL FINDINGS: None. IMPRESSION: Segmental wall thickening involving the mid to distal sigmoid with adjacent inflammatory changes, wit h a haustral appearance. Findings may relate to segmental involvement with inflammatory colitis, possibly ulcerative colitis, versus infectious colitis.
--- NOTE | 2025-01-12 22:41 | ER ---
Nurse's Notes [facility] Name: Krishna Spencer Age: 89 yrs Sex: Male : 1935 Arrival Date: 01/12/2025 Time: 19:02 Bed 19 Private MD: Diagnosis: Infectious gastroenteritis and colitis, unspecified;Elevated white blood cell count, unspecified;Severe sepsis without septic shock Presentation: 01/12 19:06 Chief complaint: EMS states: toned out for n/v/d. patient was constipated this morning me1 and about 14:45 his daughter gave him some miralax. He has been having n/v/d. Stool is black and tarry. Patient has tremors that are new this evening. 18g RAC, administered zofran 4 mg and about 100 ml of NS. Coronavirus screen: Vaccine status: Patient reports receiving the 2nd dose of the covid vaccine. Ebola Screen: No symptoms or risks identified at this time. Risk Assessment: Do you want to hurt yourself or someone else? Patient reports no desire to harm self or others. Onset of symptoms was January 12, 2025 at 16:30. Care prior to arrival: Medication(s) given: Normal saline infusion, 100 ml zofran 4 mg, IV initiated. 18 GA, in the right antecubital area, Glucose check: 174. 19:06 Method Of Arrival: EMS: [facility] 19:06 Acuity: MARIA ESTHER 3 me1 Triage Assessment: 19:41 General: Appears ill, slender, well groomed, well developed, Behavior is calm, me1 cooperative, appropriate for age. Pain: Complains of pain in right lower quadrant Pain does not radiate. Pain currently is 6 out of 10 on a pain scale. Quality of pain is described as sharp, Is intermittent. EENT: No signs and/or symptoms were reported regarding the EENT system. Neuro: Level of Consciousness is awake, alert, obeys commands, Oriented to person, place, time, situation, Appropriate for age Cardiovascular: Patient's skin is warm and dry. Respiratory: Airway is patent Respiratory effort is even, unlabored, Respiratory pattern is regular, symmetrical. GI: Reports diarrhea, nausea, vomiting, since this evening. Was constipated this am and his daughter gave him miralax at 14:45. A while later he started having n/v/d. : No signs and/or symptoms were reported regarding the genitourinary system. Derm: Skin is intact, is healthy with good turgor, Skin is pink, warm \T\ dry. Musculoskeletal: No signs and/or symptoms reported regarding the musculoskeletal system. Historical: - Allergies: 19:10 Lipitor; me1 - PMHx: 19:10 Atrial fibrillation; Congestive heart failure; kidney disease; diabetes mellitus; low me1 blood pressure; - PSHx: 19:10 Coronary artery bypass graft; Tonsillectomy; Coronary Angioplasty; cerebral hemorrhage; me1 - Immunization history:: Adult Immunizations up to date. - Infectious Disease History:: Denies. - Social history:: Smoking status: Patient denies any tobacco usage or history of. Screenin:43 [facility] ED Fall Risk Assessment (Adult) History of falling in the last 3 months, me1 including since admission No falls in past 3 months (0 pts) Confusion or Disorientation No (0 pts) Intoxicated or Sedated No (0 pts) Impaired Gait Yes (1 pt) Mobility Assist Device Used Yes (1 pt) Altered Elimination No (0 pt) Score/Fall Risk Level 3 or more points = High Risk Maintained a safe environment, Hourly rounding (assess needs \T\ fall precautionary measures) done, Used ambulatory aids as needed (educated on \T\ assisted with). Abuse screen: Denies threats or abuse. Nutritional screening: No deficits noted. Tuberculosis screening: No symptoms or risk factors identified. Assessment: 19:43 General: See triage assessment. GI: Reports diarrhea, nausea, vomiting. tx1 01/13 00:19 General: Report given to LUCY Chavez. me1 Vital Signs: 01/12 19:06 Weight 75.3 kg; Height 6 ft. 2 in. ; me1 19:26 BP 113 / 68; Pulse 45; Resp 18; Temp 97.1(A); Pulse Ox 95% ; me1 20:00 BP 131 / 52; Pulse 44; Resp 16; Pulse Ox 98% ; me1 21:00 BP 130 / 51; Pulse 44; Resp 19; Pulse Ox 95% ; me1 22:00 BP 114 / 66; Pulse 48; Resp 18; Pulse Ox 95% ; me1 23:00 BP 114 / 50; Pulse 48; Resp 17; Pulse Ox 94% ; me1 23:45 BP 93 / 57; Pulse 43; Resp 18; Pulse Ox 95% ; me1 19:06 Body Mass Index 21.31 (75.30 kg, 187.96 cm) tx1 ED Course: 19:06 Patient arrived in ED. me1 19:10 Triage completed. me1 19:10 Arm band placed on Patient placed in an exam room. me1 19:15 Divine Baxter FNP-C [facility]. kb 19:15 Rafael Zamudio MD is Attending Physician. kb 19:23 Kassandra Weber, LUCY is Primary Nurse. me1 19:39 Maintain EMS IV. Dressing intact. Good blood return noted. Site clean \T\ dry. Gauge \T\ tx 1 site: 18g RAC. 19:43 Patient has correct armband on for positive identification. Bed in low position. Call [facility] light in reach. Side rails up X 1. Provided Education on: POC. Verbalized understanding.. Client placed on continuous cardiac and pulse oximetry monitoring. NIBP monitoring applied. Pulse ox on. NIBP on. 19:43 No provider procedures requiring assistance completed. me1 19:43 Initial lab(s) drawn, by tx, sent to lab. me1 19:46 CBC with Diff Sent. me1 19:46 CMP Sent. me1 19:46 Lipase Sent. me1 20:33 CXR XRAY In Process Unspecified. EDMS 20:38 Abdomen In Process Unspecified. EDMS 22:28 First set of blood cultures drawn by tx. me1 22:32 Blood Culture Adult (2) Sent. me1 22:32 Lactate w/ 2H reflex if indic. Sent. me1 22:32 Protime (+inr) Sent. me1 22:32 Ptt, Activated Sent. me1 22:37 Second set of blood cultures drawn by tx. me1 22:40 Thiago Rice MD is Hospitalizing Provider. kb 01/13 03:02 Attending Physician role handed off by Rafael Zamudio MD sp4 03:02 Sonny Roth MD is Attending Physician. sp4 12:16 Warm blanket given. db 12:16 Patient transferred, IV remains in place. db Administered Medications: 01/12 19:46 Drug: NS 0.9% IV 500 ml 500 ml IV at 1 bolus once; to be given as a bolus over 30 me1 minutes {Note: given from EMS fluids.} Volume: 500 ml; Route: IV; Rate: 1 bolus; Site: right antecubital; 22:33 Follow up: Response: No adverse reaction; IV Status: Completed infusion; IV Intake: me1 500ml 19:53 Drug: Ondansetron IVP 4 mg IVP once; over 2 minutes Route: IVP; Site: right antecubital;me1 22:32 Follow up: Response: No adverse reaction; Nausea is decreased me1 23:01 Drug: metroNIDAZOLE IVPB 500 mg 100 ml IVPB at 200 ml/hr once over 30 mins Volume: 100 me1 ml; Route: IVPB; Rate: 200 ml/hr; Infused Over: 30 mins; Site: right antecubital; 23:55 Follow up: IV Status: Completed infusion me1 23:55 Follow up: Response: No adverse reaction me1 23:16 CANCELLED (Physician Discretion): [id number] mg 200 ml IVPB once over 60 mins kb 01/13 00:00 Drug: Rocephin IV 1 grams IV at calculated rate once; Given slow IV push per pharmacy me1 instructions Route: IV; Rate: calculated rate; Site: right antecubital; 02:18 Follow up: IV Status: Completed infusion ay Medication: 01/12 19:43 VIS not applicable for this client. me1 Intake: 22:33 IV: 500ml; Total: 500ml. me1 Outcome: 22:41 Decision to Hospitalize by Provider. kb 01/13 12:16 Admitted to Med/surg room 213, with oxygen, db Condition: stable Instructed on the need for transfer, 12:59 Patient left the ED. aa5 Signatures: Dispatcher [employer] EDDivine Juarez, WATER SOFTENER SERVICER-C WATER SOFTENER SERVICER-CkJennifer Joseph RN RN aa5 Na Cervantes RN LUCY db Sonny Roth MD MD sp4 Kassandra Weber RN RN me1 Lincoln Vasquez RN RN ay Corrections: (The following items were deleted from the chart) 01/12 19:27 19:06 Chief complaint: EMS states: toned out for n/v/d. patient was constipated this me1 morning and about 14:45 his daughter gave him some miralax. He has been having n/v/d. Stool is black and tarry. Patient has tremors that are new this evening. 18g RAC, administered zofran 4 mg and about 100 ml of NS. me1 01/13 12:17 12:16 Transferred by ground EMS Transfer form completed. db db
--- NOTE | 2025-01-12 22:41 | EDPHYS ---
Physician Documentation [facility] Name: Krishna Spencer Age: 89 yrs Sex: Male : 1935 Arrival Date: 01/12/2025 Time: 19:02 Bed 19 Private MD: ED Physician Sonny Roth HPI: 01/12 22:39 This 89 yrs old Male presents to ER via EMS with complaints of Nausea/Vomiting/Diarrhea.kb 22:39 Pt is an 89 year old male who presents for vomiting and diarrhea. Daughter states pt kb had constipation today so she gave him mirelax, then he developed diarrhea and started vomiting so she called 911. States pt developed chills just prior to arrival. . Historical: - Allergies: 19:10 Lipitor; me1 - PMHx: 19:10 Atrial fibrillation; Congestive heart failure; kidney disease; diabetes mellitus; low me1 blood pressure; - PSHx: 19:10 Coronary artery bypass graft; Tonsillectomy; Coronary Angioplasty; cerebral hemorrhage; me1 - Immunization history:: Adult Immunizations up to date. - Infectious Disease History:: Denies. - Social history:: Smoking status: Patient denies any tobacco usage or history of. ROS: 22:38 Constitutional: As per HPI kb Exam: 22:38 Constitutional: This is a well developed, well nourished patient who is awake, alert, kb and in no acute distress. Head/Face: Normocephalic, atraumatic. ENT: Moist Mucous membranes Respiratory: Respirations even and unlabored. No increased work of breathing. Talking in full sentences Skin: Warm, dry with normal turgor. Normal color. MS/ Extremity: Pulses equal, no cyanosis. Neurovascular intact. Full, normal range of motion. Neuro: Awake and alert, GCS 15, oriented to person, place, time, and situation. 22:38 Cardiovascular: Rate: bradycardic, 22:38 Abdomen/GI: Inspection: abdomen appears normal, Bowel sounds: normal, Palpation: soft, in all quadrants, mild abdominal tenderness, in the right lower quadrant, Vital Signs: 19:06 Weight 75.3 kg; Height 6 ft. 2 in. ; me1 19:26 BP 113 / 68; Pulse 45; Resp 18; Temp 97.1(A); Pulse Ox 95% ; me1 20:00 BP 131 / 52; Pulse 44; Resp 16; Pulse Ox 98% ; me1 21:00 BP 130 / 51; Pulse 44; Resp 19; Pulse Ox 95% ; me1 22:00 BP 114 / 66; Pulse 48; Resp 18; Pulse Ox 95% ; me1 23:00 BP 114 / 50; Pulse 48; Resp 17; Pulse Ox 94% ; me1 23:45 BP 93 / 57; Pulse 43; Resp 18; Pulse Ox 95% ; me1 19:06 Body Mass Index 21.31 (75.30 kg, 187.96 cm) ak1 MDM: 19:16 Medical Screening Exam initiated kb 22:38 Differential diagnosis: Nonspecific abd pain, diverticulitis, viral gastroenteritis, kb colitis. Data reviewed: vital signs, nurses notes. Consideration of Admission/Observation Patient was admitted/placed on observation. Escalation of care including admission/observation considered. Management of patient was discussed with the following: Primary Care Provider: Dr Rice accepts pt for admission. Historians other than the Patient: Daughter/Son: daughter. Counseling: I had a detailed discussion with the patient and/or guardian regarding the historical points, exam findings, and any diagnostic results supporting the discharge/admit diagnosis, lab results, radiology results, the need for further work-up and treatment in the hospital. 23:21 ED course: Prolonged QT on EKG which is unchanged from prior. Will discontinue cipro kb and give rocephin instead. 01/12 19:23 Order name: CBC with Diff; Complete Time: 21:40 kb 01/12 19:23 Order name: CMP; Complete Time: 20:08 kb 01/12 19:23 Order name: Lipase; Complete Time: 20:08 kb 01/12 19:23 Order name: Urinalysis w/ reflexes kb 01/12 19:54 Order name: Manual Differential; Complete Time: 21:40 EDMS 01/12 21:58 Order name: Blood Culture Adult (2) kb 01/12 21:58 Order name: Lactate w/ 2H reflex if indic.; Complete Time: 23:31 kb 01/12 21:58 Order name: Protime (+inr); Complete Time: 23:02 kb 01/12 21:58 Order name: Ptt, Activated; Complete Time: 23:02 kb 01/13 01:27 Order name: Ghost Lactate-NO COLLECT Timer; Complete Time: 03:08 EDMS 01/13 02:05 Order name: Glucose, Ancillary Testing; Complete Time: 03:08 EDMS 01/13 02:49 Order name: Lactate Sepsis 2 HR Follow-up; Complete Time: 03:08 EDMS 01/13 04:53 Order name: CBC with Automated Diff EDMS 01/13 08:47 Order name: Basic Metabolic Panel EDMS 01/13 08:51 Order name: Glucose, Ancillary Testing EDMS 01/13 09:32 Order name: Basic Metabolic Panel EDMS 01/13 12:15 Order name: Glucose, Ancillary Testing EDMS 01/13 12:50 Order name: Urinalysis w/ reflexes EDMS 01/12 19:48 Order name: CXR XRAY; Complete Time: 21:31 me1 01/12 20:38 Order name: Abdomen ; Complete Time: 22:29 EDMS 01/12 19:23 Order name: IV Saline Lock; Complete Time: 19:46 kb 01/12 19:23 Order name: Labs collected and sent; Complete Time: 19:46 kb 01/12 21:58 Order name: Cardiac monitoring; Complete Time: 23:55 kb 01/12 21:58 Order name: EKG - Nurse/Tech; Complete Time: 23:55 kb 01/12 21:58 Order name: IV Saline Lock - Large Bore; Complete Time: 22:33 kb 01/12 21:58 Order name: O2 Per Protocol; Complete Time: 22:32 kb 01/12 21:58 Order name: O2 Sat Monitoring; Complete Time: 22:32 kb 01/12 21:58 Order name: Vital Signs; Complete Time: 22:32 kb 01/13 00:16 Order name: Misc. Order: repeat lactate at 0130 please ; Complete Time: 02:18 kb 01/13 07:57 Order name: Misc. Order: recollect green top; Complete Time: 08:22 db Administered Medications: 19:46 Drug: NS 0.9% IV 500 ml 500 ml IV at 1 bolus once; to be given as a bolus over 30 me1 minutes {Note: given from EMS fluids.} Volume: 500 ml; Route: IV; Rate: 1 bolus; Site: right antecubital; 22:33 Follow up: Response: No adverse reaction; IV Status: Completed infusion; IV Intake: me1 500ml 19:53 Drug: Ondansetron IVP 4 mg IVP once; over 2 minutes Route: IVP; Site: right antecubital;me1 22:32 Follow up: Response: No adverse reaction; Nausea is decreased me1 23:01 Drug: metroNIDAZOLE IVPB 500 mg 100 ml IVPB at 200 ml/hr once over 30 mins Volume: 100 me1 ml; Route: IVPB; Rate: 200 ml/hr; Infused Over: 30 mins; Site: right antecubital; 23:55 Follow up: IV Status: Completed infusion me1 23:55 Follow up: Response: No adverse reaction me1 23:16 CANCELLED (Physician Discretion): [id number] mg 200 ml IVPB once over 60 mins kb 01/13 00:00 Drug: Rocephin IV 1 grams IV at calculated rate once; Given slow IV push per pharmacy me1 instructions Route: IV; Rate: calculated rate; Site: right antecubital; 02:18 Follow up: IV Status: Completed infusion ay Disposition: 03:08 Co-signature as Attending Physician, Sonny Roth MD I agree with the assessment sp4 and plan of care. I reviewed the patient's care provided by Advanced Practice Provider \T\ agree w/ the diagnosis \T\ care plan. I personally saw the pt \T\ performed a substantive portion of the visit, incldng all aspects of the (History/Exam/Medical Decision Making). Disposition Summary: 01/12/25 22:41 Hospitalization Ordered Notes: Hospitalization Status: Inpatient Admission kb Provider: Thiago Rice Condition: Stable kb Problem: new kb Symptoms: are unchanged kb Bed/Room Type: Standard Location: Telemetry/MedSurg (Inpatient)(01/13/25 11:52) bc Room Assignment: [facility](01/13/25 11:52) bc6 Diagnosis - Infectious gastroenteritis and colitis, unspecified kb - Elevated white blood cell count, unspecified kb - Severe sepsis without septic shock kb Forms: - Medication Reconciliation Form kb - SBAR form kb - Leadership Thank You Letter kb Critical care time excluding procedures: 00:19 Critical care time: Bedside Care: 10 minutes, Consultation: 10 minutes, Family kb Intervention: 10 minutes. Total time: 30 minutes Signatures: Dispatcher [employer] Divine Roqeu, OLEGARIO-C OLEGARIO-Na Goodson RN RN db Shaunna Bhatt 6 Sonny Roth MD MD sp4 Kassandra Weber RN RN ak1 Antoinette Lugo [facility] Lincoln Vasquez RN ay Corrections: (The following items were deleted from the chart) 01/12 19:23 19:23 CBC+H.LAB.BRZ ordered. EDMS EDMS 19:23 19:23 COMPREHENSIVE METABOLIC PANEL+C.LAB.BRZ ordered. EDMS EDMS 19:23 19:23 LIPASE+C.LAB.BRZ ordered. EDMS EDMS 19:23 19:23 Urinalysis+U.LAB.BRZ ordered. EDMS EDMS 20:38 19:23 Abdomen Pelvis W Con+CT.RAD.BRZ ordered. EDMS EDMS 23:16 22:29 Ciprofloxacin IVPB 400 mg 200 ml IVPB once over 60 mins ordered. kb 01/13 01:30 01/12 22:41 Telemetry/MedSurg (Inpatient) [facility] 01/13 01:30 01/12 22:41 kb [facility] 01/13 11:52 01:30 [facility] ER HOLD [facility] bc6 11:52 01:30 ERHOLD- [facility]
[2025-01-12] MEDS ORDERED: CIPROFLOXACIN 400mg IV 0 MG/0 ML BAG IV ONE (22:43)
[2025-01-12] MEDS ORDERED: METRONIDAZOLE 500mg IVPB 500 MG/100 ML BAG IV ONE (22:43)
[2025-01-12 22:52] LABS: PT Prothrombin Time 13.3 SECONDS (10-13.0); PTT, Activated Partial Thromb 27.4 SECONDS (27.2-37.4); Protime INR 1.18
[2025-01-12] MEDS ORDERED: NA CHLORIDE 0.9% 100 ML ONE (23:57)
[2025-01-12] MEDS ORDERED: CEFTRIAXONE 1000 MG/VIAL ONE (23:57)
[2025-01-13] MEDS ORDERED: NA CHLORIDE 0.9% 1,000 ML ONE ×2 (01:11→09:09)
[2025-01-13] MEDS: NA CHLORIDE 0.9% 1,000 ML IV SCH ×2 (03:09→08:00)
[2025-01-13] MEDS ORDERED: ONDANSETRON 4 MG/2 ML VIAL IV PRN (03:09)
[2025-01-13] MEDS ORDERED: D10W 125 ML IV PRN (03:30)
[2025-01-13] MEDS ORDERED: GLUCAGON 1 MG/VIAL IM PRN (03:30)
[2025-01-13] MEDS ORDERED: ALBUTEROL 2.5 MG/3 ML NEB SOL NEB PRN (03:30)
[2025-01-13] MEDS ORDERED: ACETAMINOPHEN 325 MG TABLET PO PRN (03:30)
[2025-01-13] MEDS: D5 0.45 NS 1,000 ML IV SCH (04:00)
[2025-01-13] MEDS ORDERED: D5 0.45 NS 1,000 ML IV ONE (04:07)
[2025-01-13 04:51] LABS: Absolute Lymphocytes (CBC) 0.9 K/uL (0.7-4.9); Absolute Monocytes 0.9 K/uL (0.1-1.3); Absolute Neutrophil 18.5 K/uL (1.8-8.0); Basophils % 0.1 % (0-1.3); Hematocrit 33.9 % (39.6-49.0); Hemoglobin 11.2 g/dL (13.6-17.9); Lymphocytes % 4.3 % (15.3-44.8); MCH 32.7 pg (27.0-35.0); MCHC 33.1 g/dL (32.0-36.0); MCV 98.7 fL (80-100); MPV 9.1 fL (7.6-11.3); Monocytes % 4.7 % (3.3-12.3); Neutrophils % 90.9 % (41.7-73.7); Platelets 174 thou/uL (152-406); RBC Red Blood Cell Count 3.44 M/uL (4.33-5.43); Red Cell Distribution Width 13.8 % (12.1-15.2)
[2025-01-13 05:45] VITALS: BMI 21.3
[2025-01-13] MEDS: METRONIDAZOLE 500mg IVPB 500 MG/100 ML BAG IV SCH (06:00)
[2025-01-13] MEDS ORDERED: METRONIDAZOLE 500mg IVPB 500 MG/100 ML BAG IV ONE ×2 (06:54→12:14)
[2025-01-13] MEDS ORDERED: HYDROCODONE/APAP 5/325 MG TAB PO PRN (07:29)
[2025-01-13] MEDS: INSULIN REGULAR (HUMAN) 100 UNIT/ML SQ SCH (07:30)
[2025-01-13 08:44] LABS: Anion Gap 13.2 mEq/L (5.0-15.0)
[2025-01-13 08:45] LABS: Potassium 4.2 mEq/L (3.5-5.1)
[2025-01-13] MEDS: FLUDROCORTISONE 0.1 MG TAB PO SCH (09:00)
[2025-01-13] MEDS: FERROUS SULFATE 325 MG TAB PO SCH (09:00)
[2025-01-13] MEDS: DUTASTERIDE 0.5 MG GEL CAP PO SCH (09:00)
[2025-01-13] MEDS ORDERED: CEFTRIAXONE 1,000 MG in NA CHLORIDE 0.9% 50 ML IVPB SCH (09:00)
[2025-01-13] MEDS: AMIODARONE HCL 200 MG TAB PO SCH (09:00)
[2025-01-13] MEDS: APIXABAN 2.5 MG TABLET PO SCH (09:00)
[2025-01-13] MEDS: CEFTRIAXONE 1,000 MG in NA CHLORIDE 0.9% 50 ML IVPB SCH (09:00)
[2025-01-13] MEDS ORDERED: MIDODRINE HCL 5 MG TABLET PO SCH (09:00)
[2025-01-13] MEDS ORDERED: INSULIN REGULAR (HUMAN) 100 UNIT/ML ONE ×2 (09:05→12:29)
[2025-01-13] MEDS ORDERED: CEFTRIAXONE 1000 MG/VIAL ONE (09:08)
[2025-01-13] MEDS ORDERED: AMIODARONE HCL 200 MG TAB ONE (09:08)
[2025-01-13] MEDS ORDERED: APIXABAN 2.5 MG TABLET ONE (09:08)
[2025-01-13] MEDS ORDERED: NA CHLORIDE 0.9% 50 ML ONE (09:09)
[2025-01-13 09:31] LABS: Anion Gap 10.8 mEq/L (5.0-15.0); Potassium 5.8 mEq/L (3.5-5.1)
[2025-01-13] MEDS: MIDODRINE HCL 5 MG TABLET PO SCH (11:00)
[2025-01-13] MEDS ORDERED: MIDODRINE HCL 5 MG TABLET ONE (12:14)
[2025-01-13 12:50] LABS: Calcium Oxalate Crystals- Ur Many /HPF (None Seen); Sqamous Epithelial <5 /HPF (None Seen); Urine Bacteria <20 /HPF (<20); Urine Bilirubin NEGATIVE (Negative); Urine Blood 1+ (Negative); Urine Clarity Extremely Turbid (Clear); Urine Color Yellow (Yellow); Urine Culture Reflex Order NOT NEEDED; Urine Glucose 4+ (Negative); Urine Ketones NEGATIVE (Negative); Urine Microscopic Reflex YN ORDER UMIC; Urine Nitrite NEGATIVE (Negative); Urine Protein 1+ (Negative); Urine RBC <5 /HPF (None Seen); Urine Urobilinogen 1+ (Normal); Urine WBC <5 /HPF (<5)
[2025-01-13] MEDS: ROSUVASTATIN 10 MG TAB PO SCH (22:05)
[2025-01-14 04:29] LABS: Absolute Eosinophils 0.1 K/uL (0-0.5); Absolute Lymphocytes (CBC) 1.5 K/uL (0.7-4.9); Absolute Monocytes 1.2 K/uL (0.1-1.3); Absolute Neutrophil 14.5 K/uL (1.8-8.0); Basophils % 0.1 % (0-1.3); Eosinophils % 0.3 % (0-4.4); Hematocrit 40.8 % (39.6-49.0); Hemoglobin 13.6 g/dL (13.6-17.9); Lymphocytes % 8.7 % (15.3-44.8); MCH 32.4 pg (27.0-35.0); MCHC 33.4 g/dL (32.0-36.0); MCV 97.3 fL (80-100); MPV 9.4 fL (7.6-11.3); Monocytes % 6.7 % (3.3-12.3); Neutrophils % 84.2 % (41.7-73.7); Platelets 186 thou/uL (152-406)
[2025-01-14 04:47] LABS: Anion Gap 10.4 mEq/L (5.0-15.0); Magnesium 2.3 mg/dL (1.6-2.4); Potassium 4.4 mEq/L (3.5-5.1)
[2025-01-14] MEDS: PANTOPRAZOLE 40MG TABLET PO SCH (06:25)
[2025-01-14] MEDS: LEVOTHYROXINE SOD 0.05 MG TABLET PO SCH (06:25)
--- NOTE | 2025-01-14 08:21 | HP ---
Date of Admission: 01/12/2025 Chief Complaint: Abdominal pain. History Of Present Illness: Mr. Spencer is a pleasant 89-year-old male patient who was brought into [facility] room with abdominal pain of sudden onset. The patient's daughter reported that the patient wa s having abdominal pain with some nausea and he was sitting on the commode for 2 to 4 hours, by the t dameon she ended up going to the patient's home and found him sitting on the commode very uncomfortable and she brought him to emergency room. After the patient was evaluated in the ER, I was contacted re questing admission to the hospital. He denies any blood in stool. No hematemesis. Overall, he feel s better since he came into the hospital. Physical Examination: Vital Signs: Temperature 97.6, pulse 40, respiratory rate 20, blood pressure 111/54, oxygen saturati on 99% on 2 L nasal cannula oxygen. Height 6 feet 2 inches, weight 166 pounds. General: Awake, alert, oriented, not in distress. HEENT: Head atraumatic, normocephalic. Conjunctivae nonerythematous. Sclerae white. Mouth, no thr ush or edema noted. Ears/Nose, no mass, lesion, discharge noted. Neck: Supple. No JVD, lymph nodes, bruit, thyromegaly noted. Lungs: Bilateral good equal air entry. Clear to auscultation. No rhonchi. No rales. Heart: Normal heart sounds, no murmur or gallop. Abdomen: Soft. Bowel sounds normal. No guarding, rigidity, distention. No hepatosplenomegaly. No bruit. The patient does have tenderness all across the lower abdomen. Extremities: No leg edema. No calf tenderness. Skin: No rash, ulcer, cellulitis. Lymphatics: No lymph node enlargement in neck, supraclavicular, infraclavicular region. Neuro: No focal neurological deficit. Chest: Unremarkable. External Genitalia: Deferred. Rectal: Deferred. Laboratory Data: Yesterday WBC 24.60, hemoglobin 15.5, and platelet count 269. Today WBC 20.3, hemo globin 11.2, platelets 174. For chemistry yesterday, sodium 135, potassium 4.7, chloride 100, bicarb 27, BUN 48, creatinine 2.35, glucose 163, lactic acid 2.8. Liver function tests, AST 55, total bili chu 1.1, albumin 3.1, lipase 25. Repeat lactic acid level was 2.7. Chest x-ray, stable left basil ar patchy airspace opacity suggesting some pleural effusion and atelectasis. CAT scan of the abdomen and pelvis done in the emergency room shows segmental wall thickening involving mid to distal sigmoi d colon with adjacent inflammatory change. Impression: 1. Acute colitis. 2. Acute kidney injury. 3. Volume depletion. 4. Hypertension. 5. Hyperlipidemia. 6. Type 2 diabetes mellitus. Plan: We will go ahead and admit the patient to hospital for further evaluation and management of th is problem. The patient is appropriate for inpatient and is [facility] For his colitis, we will go ahead and start the patient on antibiotic and it appears that he has responded well overnight with improvement in his WBC count. We will continue to monitor his blood te st and monitor him clinically for signs of improvement versus worsening. We will have patient on nalini ar liquid diet and advance diet as tolerated. For diabetes, we will continue to manage with sliding scale insulin per order. No need for further intervention. For hypertension, we will continue his h ome medications per order. Monitor blood pressure if necessary. Adjust medication. For hyperlipide gilson, we will continue his medications per order. No need for further intervention. Physical therapy was requested to help ambulate the patient. I did communicate with the patient in presence of his d stephanie regarding advance directives and he informed me in the event of cardiopulmonary arrest, he do es not want any heroic measures like CPR, defibrillation, or ventilator support, and DNR order was wr itten in the chart. Total time spent 80 minutes including communication with the emergency room provider, review of emerg ency room visit record, review of last hospital admission record, review of last office visit record from 2 days ago and performing today's evaluation and management. EARLINE/MODL Voice ID: [id number]
--- NOTE | 2025-01-14 14:43 | EKG ---
Test Date: 2025-01-12 Test Time: 23:06:14 Cotton Bag Clipper: MEASUREMENT RESULTS: Intervals: Rate: 45 KS: QRSD: 110 QT: 632 QTc: 546 [place]: P: KS: QRS: 63 T: 216 INTERPRETIVE STATEMENTS: Junctional rhythm with occasional premature ventricular complexes Incomplete left bundle branch block Minimal voltage criteria for LVH, may be normal variant T wave abnormality, consider inferior ischemia T wave abnormality, consider anterolateral ischemia Prolonged QT Abnormal ECG Compared to ECG 08/26/2024 13:53:15 Junctional rhythm now present T-wave abnormality now present Possible ischemia now present Prolonged QT interval now present Electronically Signed On 01-14-25 14:40:56 CDT by Jet Davis
--- NOTE | 2025-01-14 16:06 | PN ---
Date of Progress Note: 01/14/2025 Subjective: The patient was seen this morning for followup. No new complaints or problems reported by the patient. He was feeling overall better. Abdominal pain was better. No nausea or vomiting. Has been having bowel movement. No rectal bleeding. Tolerating liquid diet well. Objective: Vital Signs: Reviewed. HEENT: Unremarkable. Lungs: Clear to auscultation. Heart: Sounds normal. Abdomen: Soft. Bowel sounds normal. No guarding, rigidity, tenderness, distention. Presence of te nderness in the lower abdomen, which is better today than yesterday. No rebound tenderness. Extremities: No leg edema. Laboratory Data: White count 17.3, hemoglobin 13.6, and platelet count of 186. Sodium 140, potassiu m 4.4, chloride 105, bicarb 29, BUN 53, creatinine 2.32, glucose 104. Impression: 1. Acute colitis. 2. Acute kidney injury. 3. Volume depletion. 4. Type 2 diabetes mellitus. 5. Hypertension. Plan: We will continue current medication. Continue current antibiotic, IV fluid. We will advance diet today. Ambulation was encouraged and I will see him tomorrow for followup. Possible discharge to go home either Friday or Friday. EARLINE/MODL Voice ID: [id number] Report ID: [id number]
[2025-01-14 22:26] VITALS: O2SAT 93
--- NOTE | 2025-01-15 09:17 | PN ---
Date of Progress Note: 01/15/2025 Subjective: The patient was seen this morning for followup. No new complaints or problems reported by him. Overall, he feels better. Abdominal pain is better. No nausea. No vomiting. Has been hav ing some belching. Tolerating diet well. Objective: Vital Signs: Reviewed. HEENT: Unremarkable. Lungs: Clear to auscultation. Heart: Sounds normal. Abdomen: Soft. Bowel sounds normal. No guarding, rigidity. No tenderness today. Bowel sounds nor moactive. Extremities: No leg edema. Impression: 1. Acute colitis. 2. Acute kidney injury. 3. Volume depletion. 4. Type 2 diabetes mellitus. 5. Hypertension. Plan: We will continue current antibiotic. Continue IV fluid but reduce rate to 50 cc/hour. Repeat blood work tomorrow morning. Continue current diet. Ambulation was encouraged. The patient was ad vised to eat his meals while sitting in the chair and not in the bed and was encouraged to ambulate t jared. We will get blood work done tomorrow. Possible discharge tomorrow depending on his condition. EARLINE/MODL Voice ID: [id number] Report ID: [id number]
[2025-01-15] MEDS: NA CHLORIDE 0.9% 1,000 ML IV SCH (09:24)
[2025-01-16 04:24] VITALS: TEMP 97.7
[2025-01-16 04:39] LABS: Absolute Eosinophils 0.2 K/uL (0-0.5); Absolute Lymphocytes (CBC) 1.1 K/uL (0.7-4.9); Absolute Monocytes 0.8 K/uL (0.1-1.3); Absolute Neutrophil 7.4 K/uL (1.8-8.0); Basophils % 0.4 % (0-1.3); Eosinophils % 1.6 % (0-4.4); Hematocrit 39.6 % (39.6-49.0); Hemoglobin 13.3 g/dL (13.6-17.9); Lymphocytes % 11.1 % (15.3-44.8); MCH 32.8 pg (27.0-35.0); MCHC 33.4 g/dL (32.0-36.0); MCV 98.1 fL (80-100); MPV 9.7 fL (7.6-11.3); Monocytes % 8.6 % (3.3-12.3); Neutrophils % 78.3 % (41.7-73.7); Nucleated Red Blood Cells % 0.1 % (0-0); Platelets 157 thou/uL (152-406); RBC Red Blood Cell Count 4.04 M/uL (4.33-5.43); Red Cell Distribution Width 14.1 % (12.1-15.2)
[2025-01-16 05:11] LABS: Anion Gap 8.7 mEq/L (5.0-15.0); Magnesium 2.2 mg/dL (1.6-2.4); Potassium 3.7 mEq/L (3.5-5.1)
[2025-01-16 09:22] VITALS: BP 113/60
--- NOTE | 2025-01-16 11:11 | DS ---
Date of Discharge: 01/16/2025 Hospital Course: The patient was seen this morning for followup. No new complaints or problems repo rted by the patient. Overall, he is feeling a lot better. Denies any abdominal pain, nausea, vomiti ng. His belching problem has improved significantly. Denies any constipation, diarrhea, or any bloo d in stool. He is tolerating diet very well. Physical Examination: HEENT: Unremarkable. Lungs: Clear to auscultation. Heart: Sounds normal. Abdomen: Soft. Bowel sounds normal. No guarding, rigidity, tenderness, distention. Extremities: No leg edema. Laboratory Data: Upon admission, WBC 24.60, hemoglobin 15.5, platelets 269. Last CBC today, WBC 9.5 , hemoglobin 13.3 platelets 157. Last chemistry today, sodium 143, potassium 3.7, chloride 110, bica rb 28, BUN 34, creatinine 1.79, glucose 108, magnesium 2.2. His highest creatinine during this hospi talization was 2.75 on 01/13/2025, and upon admission, creatinine was 2.35. Discharge Medications And Instructions: Continue all prior home medication except following changes: 1. Change amiodarone 200 mg take half a tablet by mouth daily. 2. Start cefuroxime 250 mg take 1 tablet by mouth 2 times a day with food for 1 week. 3. Start metronidazole 250 mg take 1 tablet by mouth 3 times a day with food for 1 week. 4. Follow up at my office next week on Friday, which is 01/19/2025 or , which is 5. 5. Drink 60-ounce water daily. Hospital Course: This is an 89-year-old pleasant male patient, who was admitted to the hospital with abdominal pain, nausea, vomiting. Please see dictated H and P for more information. The patient wa s evaluated in the emergency room. He was admitted to hospital and his WBC count upon admission was 24.6. Lactic acid was 2.8 and AST was 55 upon admission. Repeat lactic acid in the emergency room a fter treatment provided was 2.7. CAT scan of the abdomen and pelvis showed segmental wall thickening involving mid and distal sigmoid colon with adjacent inflammatory changes. The patient was admitted to the hospital with sepsis and acute colitis problem. He was given IV fluid and IV antibiotic was started. On basis of criteria, the patient met criteria for severe sepsis and was treated accordingl y with IV fluid, per sepsis protocol IV antibiotics. Hemodynamically, he remained stable and did not require any vasopressor medication. Initially, we started him on clear liquid diet, and as his cond ition improved, we were able to advance his diet. Now, he is tolerating diet very well without any p roblem. Physical Therapy was consulted. His generalized weakness that he had when he first came in has improved as well. His abdominal pain and tenderness have completely resolved now over last 24 ho urs or more. The patient feels a lot better today and will be discharged to go home in stable condit ion with above-mentioned medications and instructions. Final Diagnoses: 1. Severe sepsis. 2. Acute colitis. 3. Acute kidney injury. 4. Volume depletion. 5. Lactic acidosis. 6. Hypertension. 7. Hyperlipidemia. 8. Type 2 diabetes mellitus. 9. Advanced directive, do not resuscitate as per my discussion with the patient during this hospitali dahlia. 10. Total time spent 45 minutes. EARLINE/MODL Voice ID: [id number] Report ID: [id number]
== END 2025-01-16 10:11 | disposition home or self-care (01) | DRG 872 ==
LOC: ER 19:02 → ERHOLD 22:42 → 2ND 01-13 12:04
PROVIDERS: ADMIT Internal Medicine; ATTEND Internal Medicine
DX: A41.9 Sepsis, unspecified organism (principal); A09 Infectious gastroenteritis and colitis, unspecified; N17.9 Acute kidney failure, unspecified; E87.20 Acidosis, unspecified; K59.00 Constipation, unspecified; R65.20 Severe sepsis without septic shock; I48.91 Unspecified atrial fibrillation; E86.9 Volume depletion, unspecified; E78.5 Hyperlipidemia, unspecified; E11.9 Type 2 diabetes mellitus without complications; Z66 Do not resuscitate; Z95.1 Presence of aortocoronary bypass graft; Z88.8 Allergy status to other drugs, medicaments and biological substances
CPT/HCPCS: 36415; 71045; 74176; 80048; 80053; 81001; 82947; 83605; 83690; 83735; 85025; 85610; 85730; 87040; 93005; 96361; 96365; 96366; 96367; 96375; 97116; 97161; 99285; J0696; J0744; J1815; J2405; J7030; J7799